=== PATIENT | female | born 2000 | race Caucasian/White ===

== ENCOUNTER → 2022-11-26 | Outpatient (CLI) | payer OTHER, SELFPAY ==
[2022-11-26 16:37] LABS: NATERA MAILED SPECIMEN
== END | disposition home or self-care (01) ==
LOC: PAVLAB 15:32
PROVIDERS: PCP Nurse Practitioner Family; Referring Provider Obstetrics & Gynecology; Visit Provider Obstetrics & Gynecology
DX: Z34.81 Encounter for supervision of other normal pregnancy, first trimester (principal)
CPT/HCPCS: 36415

== ENCOUNTER → 2022-12-25 | Outpatient (CLI) | payer OTHER, SELFPAY | END | disposition home or self-care (01) | PROVIDERS: PCP Nurse Practitioner Family; Visit Provider Nurse Practitioner Women's Health | DX: Z34.90 Encounter for supervision of normal pregnancy, unspecified, unspecified trimester (principal) | CPT/HCPCS: 87086; 87088 ==

== ENCOUNTER → 2023-03-05 | Outpatient (CLI) | payer OTHER, SELFPAY ==
[2023-03-05 15:05] LABS: Absolute Neutrophil Count 10.2 X10^3/uL (2.0-7.7); Basophil# 0.04 X10^3/uL; Basophil% 0.3 % (0-1); Eosinophil# 0.03 X10^3/uL; Eosinophils% 0.2 % (0-5); Hematocrit 36.3 % (37-47); Lymphocyte % 12.7 % (19-41); Mean Corp Hgb Conc 33.1 g/dL (32-36); Mean Corpuscular Hgb 30.8 pg (27.0-32.0); Mean Corpuscular Volume 93.1 fL (81-99); Monocyte# 0.73 X10^3/uL; Monocyte% 5.8 % (0-10); NRBC Flagged by Analyzer 0 % (0-5); Neutrophil # 10.15 X10^3/uL (2.7-7.7); Neutrophil % 80.7 % (47-70); Platelet Count 365 K/mm3 (150-450); RBC Distribution Width CV 11.9 % (11.6-14.6); RBC Distribution Width SD 40.6 fl (35.1-43.9); White Blood Count 12.6 K/mm3 (4.4-11.0)
[2023-03-05 16:50] LABS: HIV - WCH Non-Reactive (Nonreactive); Syphilis Antibodies Non-reactive
[2023-03-05 16:56] LABS: Glucose Challenge Gest 1H 50g 94 mg/dL (70-140)
== END | disposition home or self-care (01) ==
LOC: PAVLAB 14:37
PROVIDERS: PCP Nurse Practitioner Family; Referring Provider Obstetrics & Gynecology; Visit Provider Obstetrics & Gynecology
DX: O09.90 Supervision of high risk pregnancy, unspecified, unspecified trimester (principal)
CPT/HCPCS: 36415; 82950; 85025; 86703; 86780

== ENCOUNTER → 2023-05-07 | Outpatient (CLI) | payer OTHER, SELFPAY ==
--- NOTE | 2023-05-07 13:27 | US_ITS ---
EXAM: US , LIMITED CLINICAL INDICATION: Small gestational age TECHNIQUE: Real-time limited ultrasound of the maternal uterus with image documentation. COMPARISON: No relevant prior studies available. FINDINGS: FETUS: There is an intrauterine gestation. GESTATIONAL AGE: Gestational age 35 weeks 0 days. CHAD: CHAD 06/11/2023. EFW: Estimated weight 2265 g, 17th percentile. BPD: Biparietal diameter 8.3 cm age 33 weeks 4 days, 15th percentile. HC: Head circumference 30.4 cm age 33 weeks days, 4th percentile. AC: Abdominal circumference 30.0 cm age 34 0 days, 28 percentile. FL: Femur length 6.4 cm age 33 days, 15th percentile. POSITION: Fetus is in position. HEART RATE: heart rate is 141. PLACENTA: The placenta is anterior. AMNIOTIC FLUID: KASSANDRA is 8.1 cm. US/OB Limited With Biometrics IMPRESSION: Intrauterine gestation with an average ultrasound age of 33 weeks 3 days and an estimated due date of 06/22/2023. heart rate is 141 beats per. Electronically Signed: Jimenez Strong MD at 18:19 EDT ,
== END | disposition home or self-care (01) ==
LOC: US 13:27
PROVIDERS: PCP Nurse Practitioner Family; Referring Provider Nurse Practitioner Women's Health; Visit Provider Nurse Practitioner Women's Health
DX: O26.843 Uterine size-date discrepancy, third trimester (principal); Z3A.35 35 weeks gestation of pregnancy
CPT/HCPCS: 76816

== ENCOUNTER → 2023-05-12 | Outpatient (CLI) | payer OTHER, SELFPAY ==
--- NOTE | 2023-05-12 08:01 | US_ITS ---
STUDY: SECOND AND THIRD TRIMESTER OBSTETRICAL ULTRASOUND - LIMITED REASON FOR EXAM: Female, 22 years old KASSANDRA -- PREVIOUS US 05/07/23 LMP: September 04, 2022. PRIOR ULTRASOUND: Comparison is made with prior study dated May 07, 2023. TECHNIQUE: Transabdominal TECHNICAL QUALITY: Adequate. FINDINGS: There is a single intrauterine fetus. The fetus is in a cephalic presentation. There is demonstrated cardiac activity with a heart rate of 140 bpm. There is a normal amniotic fluid volume. The largest amniotic fluid pocket measures 5.3 cm x 2.6 cm. The amniotic fluid index (KASSANDRA) is 13.5 cm. The placenta is anterior in location and is not low lying. There are Grade 2 placental changes. Limited visualization due to the head positioning. BIOMETRY: Age by LMP: 35 weeks, 5 days. CHAD by LMP: June 11, 2023. age by prior US: 34 weeks, 1 days. CHAD by prior US: June 22, 2023. US/OB Limited (No Biometrics) IMPRESSION: Normal amniotic fluid index. Electronically Signed: Enoc Sanchez MD at 9:23 EDT ,
== END | disposition home or self-care (01) ==
LOC: OPUS 08:00
PROVIDERS: PCP Nurse Practitioner Family; Referring Provider Obstetrics & Gynecology; Visit Provider Obstetrics & Gynecology
DX: O36.5930 Maternal care for other known or suspected poor fetal growth, third trimester, not applicable or unspecified (principal); Z3A.35 35 weeks gestation of pregnancy
CPT/HCPCS: 76815

== ENCOUNTER 2023-05-14 12:35 | Outpatient (CLI) | payer OTHER, SELFPAY ==
--- NOTE | 2023-05-14 12:36 | US_ITS ---
We are attempting to reach an attending provider to discuss findings. An addendum with communication details will be sent when the communication is complete. STUDY: OBSTETRICAL ULTRASOUND - BIOPHYSICAL PROFILE REASON FOR EXAM: Female, 22 years old STAT possible IUGR LMP: 09/04/2022. PRIOR ULTRASOUND: 05/12/2023. TECHNIQUE: Transabdominal. TECHNICAL QUALITY: Adequate. FINDINGS: There is a single intrauterine fetus. The fetus is in a cephalic presentation. There is demonstrated cardiac activity with a heart rate of 138 bpm. There is a normal amniotic fluid volume. The largest amniotic fluid pocket measures 4.4 x 3.3 cm. The amniotic fluid index (KASSANDRA) is 9.57 cm. The placenta is anterior but not low-lying. There are Grade 2 placental changes. Age by LMP: 36 weeks, 0 days. CHAD by LMP: 06/06/2023.. age by prior US: 34 weeks, 3 days. CHAD by prior US: 06/22/2023.. . Gender: BIOPHYSICAL PROFILE: Breathing Movements (FBM): 0 Gross Body Movements (GBM): 2 Tone (FT): 2 Amniotic Fluid Volume (AFV): 2 TOTAL SCORE: / 8 US/Biophysical Prof W/O Non Stres IMPRESSION: Abnormal biophysical profile of 04/24. Electronically Signed: Justin Bryant MD at 13:59 EDT ,
[2023-05-14 13:55] VITALS: BP 123/73; PULSE 71; TEMP 36.4
[2023-05-14 14:05] VITALS: BMI 25.0
== END 2023-05-14 15:05 | disposition home or self-care (01) ==
LOC: US 12:35 → WPOUT 13:47 → WP 13:49
PROVIDERS: PCP Nurse Practitioner Family; Referring Provider Obstetrics & Gynecology; Visit Provider Obstetrics & Gynecology
DX: O09.90 Supervision of high risk pregnancy, unspecified, unspecified trimester (principal); Z3A.00 Weeks of gestation of pregnancy not specified
CPT/HCPCS: 59025; 59050; 76819; 87081; 99221; G0378

== ENCOUNTER 2023-05-20 14:00 | Outpatient (CLI) | payer OTHER, SELFPAY ==
[2023-05-20 14:16] VITALS: PULSE 79; PULSE 84; O2SAT 79; O2SAT 98
[2023-05-20 14:19] VITALS: BP 121/76; PULSE 74; TEMP 36.7; O2SAT 97
[2023-05-20 14:27] VITALS: BMI 24.7
--- NOTE | 2023-05-20 23:14 | OB.TRI.NOTE ---
HPI - General General Date of Admission: 05/20/23 Date of Service: 05/20/23 HPI Narrative KRISTEN BAUTISTA, is a 22 y/o @ 36 weeks, 6 days who presents to l&D with decreased movement on 05/20/23. [facility] Medical History (Updated 06/04/23 @ 08:[address] Estelle Nelson, DO) Anxiety delivery delivered Home Medications PNV 178-FA 180 mcg-om3 35 mg-dha 25 mg-epa 5 mg-fish oil chew tablet 1 tab PO DAILY preganancy 11/21/22 [History Last Taken 05/28/23 20:30] famotidine 20 mg tablet (Pepcid) 20 mg PO BID Heartburn #60 tabs 11/26/22 [Rx Last Taken 05/29/23 10:30] citalopram 20 mg tablet (Celexa) 20 mg PO DAILY Depression #90 tabs 02/17/23 [Rx Last Taken 05/29/23 10:30] naproxen 500 mg tablet 500 mg PO BID PRN PRN Pain #30 tabs 05/30/23 [Rx Last Taken Unknown] oxycodone-acetaminophen 5 mg-325 mg tablet (Percocet) 1 tab PO Q6H PRN pain 7 days #20 tabs 05/30/23 [Rx Last Taken Unknown] Allergy/AdvReac Type Severity Reaction Status Date / Time No Known Allergies Allergy Verified 05/29/23 19:11 Family History Father Skin cancer, Onset Age: 52 Brother Asperger syndrome Mother Cystic fibrosis carrier Social History adopted: No household members: spouse current occupational status: employed 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 occupational exposures/hazards: No pets and animals: Yes (Not managing litterbox while ) pets and animals: cat(s) and dog(s) history of recent travel: No sexually active: Yes Smoking Status: Never smoker alcohol intake: former details: not while substance use type: does not use well-balanced diet: daily or most days caffeine: No eating out: 1-3 times/week during the past year weight has: decreased > 10 lbs what type of physical activity do you participate in: none darrius/religious: Oriental Orthodox seatbelt use: always do you feel safe at home: Yes additional social history: - Will- Road Consultant History 2 Elective abortions Hx Para 0 Spontaneous abortions 1 Hx # Term Pregnancies Ectopic pregnancies Hx # Pregnancies Multiple births # of living children 1 Past Pregnancies Del. Date Name GA/Weeks Outcome Route Bth Weight Gen Labor Lgth Anesthesia Del Locatn Provider FOB 06/03/21 miscarriage 5 weeks gestation 05/30/23 Ellie 38 live - full term Female [facility] Rachel Delivery Date: 05/30/23 Last Updated by: Kendal Nascimento variable, Primary LTCS IOL IUGR ROS Constitutional Constitutional: Reports systems reviewed and no addt'l complaints, except as documented Gastrointestinal Gastrointestinal: Denies bloating, constipation, cramping, diarrhea, nausea or vomiting Genitourinary Genitourinary: Reports other Details: Denies vaginal odor, vaginal bleeding, or vaginal discharge ; Denies difficulty urinating or flank pain NST FHR Rate Baby A Baseline: 130-140 Variability:: Moderate Accelerations:: 15 x 15 Decelerations:: None NST Reactive:: Yes FHR Category:: Category I Assessment & Plan (1) Decreased movement: PLAN: Plan patient reassured of reactive NST. kick counts discussed dc pt to home keep next scheduled appt. Charges/Coding Multi Select Codes Urinary/Genital Urinary/Genital CPT Codes: 03104-45 non-stress test Interp
== END 2023-05-20 15:27 | disposition home or self-care (01) ==
LOC: WPOUT 14:05 → WP 14:05
PROVIDERS: PCP Nurse Practitioner Family; Referring Provider Obstetrics & Gynecology; Visit Provider Obstetrics & Gynecology
DX: O36.8130 Decreased fetal movements, third trimester, not applicable or unspecified (principal); Z3A.36 36 weeks gestation of pregnancy
CPT/HCPCS: 59025; 59050; 99221; G0378

== ENCOUNTER → 2023-05-21 | Outpatient (CLI) | payer OTHER, SELFPAY ==
[2023-05-21 11:29] LABS: Protein, Urine (Random) 61.5 mg/dL (<11.9); Protein:Creat Ratio 241 mg/g CRE (0-200)
== END | disposition home or self-care (01) ==
LOC: LABSPEC 11:12
PROVIDERS: PCP Nurse Practitioner Family; Visit Provider Obstetrics & Gynecology
DX: O12.10 Gestational proteinuria, unspecified trimester (principal); Z3A.00 Weeks of gestation of pregnancy not specified
CPT/HCPCS: 82570; 84156

== ENCOUNTER → 2023-05-21 | Outpatient (CLI) | payer OTHER, SELFPAY ==
[2023-05-21 11:36] LABS: Absolute Lymphocyte Count 1.87 X10^3/uL (0.83-4.51); Absolute Neutrophil Count 7.1 X10^3/uL (2.0-7.7); Basophil# 0.08 X10^3/uL; Basophil% 0.8 % (0-1); Eosinophil# 0.07 X10^3/uL; Eosinophils% 0.7 % (0-5); Hematocrit 38.1 % (37-47); Hemoglobin 12.3 g/dL (12.0-15.0); Lymphocyte # 1.87 X10^3/ul (0.83-4.51); Lymphocyte % 18.8 % (19-41); Mean Corp Hgb Conc 32.3 g/dL (32-36); Mean Corpuscular Hgb 29.5 pg (27.0-32.0); Mean Corpuscular Volume 91.4 fL (81-99); Monocyte# 0.81 X10^3/uL; Monocyte% 8.1 % (0-10); NRBC Flagged by Analyzer 0.2 % (0-5); Neutrophil # 7.05 X10^3/uL (2.7-7.7); Neutrophil % 70.9 % (47-70); Platelet Count 366 K/mm3 (150-450); RBC Distribution Width CV 12.5 % (11.6-14.6); RBC Distribution Width SD 40.8 fl (35.1-43.9); Red Blood Count 4.17 M/mm3 (4.2-5.4)
[2023-05-21 12:04] LABS: ALB/GLOB Ratio 0.7 RATIO (0.9-2.4); AST(SGOT) 22 U/L (15-37); Alanine Aminotransfer ALT/SGPT 16 U/L (13-56); Alkaline Phosphatase 195 U/L (45-117); Anion Gap 8 (5-15); BUN 10 mg/dL (7-18); BUN/Creat Ratio 11.1 RATIO (10-20); Calcium,Total 9.2 mg/dL (8.5-10.1); Chloride 106 mmol/L (98-107); EST Glomerular Filtration Rate 82 mL/min (>60); Est Glom Filt Rate - Afr Amer 99 mL/min (>60); Globulin 4.5 g/dL (2.2-4.2); Glucose 74 mg/dL (74-106); Protein, Total 7.5 g/dL (6.4-8.2); Sodium Level 135 mmol/L (136-145)
== END | disposition home or self-care (01) ==
PROVIDERS: PCP Nurse Practitioner Family; Referring Provider Obstetrics & Gynecology; Visit Provider Obstetrics & Gynecology
DX: O12.10 Gestational proteinuria, unspecified trimester (principal); Z3A.00 Weeks of gestation of pregnancy not specified
CPT/HCPCS: 36415; 80053; 85025

== ENCOUNTER → 2023-05-26 | Outpatient (CLI) | payer OTHER, SELFPAY ==
[2023-05-26 10:02] LABS: Absolute Lymphocyte Count 1.82 X10^3/uL (0.83-4.51); Basophil# 0.05 X10^3/uL; Basophil% 0.6 % (0-1); Eosinophil# 0.07 X10^3/uL; Eosinophils% 0.8 % (0-5); Hematocrit 34.7 % (37-47); Hemoglobin 11.2 g/dL (12.0-15.0); Lymphocyte # 1.82 X10^3/ul (0.83-4.51); Lymphocyte % 20.7 % (19-41); Mean Corp Hgb Conc 32.3 g/dL (32-36); Mean Corpuscular Hgb 29.2 pg (27.0-32.0); Mean Corpuscular Volume 90.4 fL (81-99); Monocyte% 9.1 % (0-10); NRBC Flagged by Analyzer 0 % (0-5); Neutrophil % 68.2 % (47-70); Platelet Count 330 K/mm3 (150-450); RBC Distribution Width CV 12.4 % (11.6-14.6); RBC Distribution Width SD 40.8 fl (35.1-43.9); Red Blood Count 3.84 M/mm3 (4.2-5.4); White Blood Count 8.8 K/mm3 (4.4-11.0)
[2023-05-26 10:24] LABS: ALB/GLOB Ratio 0.7 RATIO (0.9-2.4); AST(SGOT) 24 U/L (15-37); Alanine Aminotransfer ALT/SGPT 14 U/L (13-56); Albumin, Serum 2.9 g/dL (3.2-5.0); Alkaline Phosphatase 198 U/L (45-117); Anion Gap 6 (5-15); BUN 11 mg/dL (7-18); BUN/Creat Ratio 12.4 RATIO (10-20); Calcium,Total 9.2 mg/dL (8.5-10.1); Chloride 106 mmol/L (98-107); Creatinine, Serum 0.88 mg/dL (0.55-1.02); EST Glomerular Filtration Rate 83 mL/min (>60); Est Glom Filt Rate - Afr Amer 100 mL/min (>60); Globulin 4.4 g/dL (2.2-4.2); Glucose 78 mg/dL (74-106); Potassium 4.2 mmol/L (3.5-5.1); Protein, Total 7.3 g/dL (6.4-8.2); Sodium Level 134 mmol/L (136-145)
[2023-05-26 10:40] LABS: Protein, Urine (Random) 50.6 mg/dL (<11.9); Protein:Creat Ratio 356 mg/g CRE (0-200)
== END | disposition home or self-care (01) ==
PROVIDERS: PCP Nurse Practitioner Family; Referring Provider Registered Nurse; Visit Provider Registered Nurse
DX: O12.10 Gestational proteinuria, unspecified trimester (principal); Z3A.00 Weeks of gestation of pregnancy not specified
CPT/HCPCS: 36415; 80053; 82570; 84156; 85025

== ENCOUNTER 2023-05-29 18:50 | Inpatient (IN) | payer OTHER, SELFPAY ==
--- NOTE | 2023-05-14 19:22 | OB.TRI.HP_ITS ---
HPI - General HPI Narrative KRISTEN BAUTISTA, is a 22 y/o @ 36 weeks 0 days who presents for bpp 04/24. Bpp was ordered for ac of 4th%. She has an mfm appt coming up to discuss. Maternal Data Information CHAD Calculator Estimated Delivery Date Method Current WG Current Estimate 06/11/23 LMP (Certain) 36w 0d PFSH PFSH Home Medications PNV 178-FA 180 mcg-om3 35 mg-dha 25 mg-epa 5 mg-fish oil chew tablet 1 tab PO preganancy 11/21/22 [History Last Taken 05/13/23 21:00 1 TAB] famotidine 20 mg tablet (Pepcid) 20 mg PO BID #60 tabs 11/26/22 [Rx Last Taken 05/14/23 08:00 20 mg] citalopram 20 mg tablet (Celexa) 20 mg PO DAILY #90 tabs 02/17/23 [Rx Last Taken 05/14/23 08:00 20 mg] Allergy/AdvReac Type Severity Reaction Status Date / Time No Known Allergies Allergy Verified 05/14/23 14:08 Family History Father Skin cancer, Onset Age: 52 Brother Asperger syndrome Mother Cystic fibrosis carrier Social History adopted: No household members: spouse current occupational status: employed 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 occupational exposures/hazards: No pets and animals: Yes (Not managing litterbox while ) pets and animals: cat(s) and dog(s) history of recent travel: No sexually active: Yes Smoking Status: Never smoker alcohol intake: former details: not while substance use type: does not use well-balanced diet: daily or most days caffeine: No eating out: 1-3 times/week during the past year weight has: decreased > 10 lbs what type of physical activity do you participate in: none darrius/voodoo: Quaker seatbelt use: always do you feel safe at home: Yes additional social history: - Will- Registered Nurse Teacher History 2 Elective abortions Hx Para 0 Spontaneous abortions 1 Hx # Term Pregnancies Ectopic pregnancies Hx # Pregnancies Multiple births # of living children Past Pregnancies Del. Date Name GA/Weeks Outcome Route Bth Weight Gen Labor Lgth Anesthesia Del Locatn Provider FOB 06/03/21 miscarriage 5 weeks gestation Visit Details Expected Delivery Route/Plan Labor Preferences- CB/BF classes: Done labor support person: Will labor intervention preferences: [] pain management options preferred: epidural when she asks cut cord/dad catch: [] : yes PP control planned: [] discussed possible routes of delivery and associated risks: [] special requests: [] Plans Covid status: [] Flu vaccine: [] Tdap vaccine: done Rhogam: O+ LARC form signed: completed Problem list reviewed and updated with the most current plan of care details and appropriate orders placed. Relevant counseling for the gestational age provided. Continue routine care and follow up unless otherwise noted in visit notes/problem list details OB Flowsheet Initial Weight: Not Recorded Date -?-?-?-?-?-?-?-?-?-?-?-?- EGA Weight BP Urine Prot -?-?-?-?-?-?-?-?-?-?-?-?- Glucose FHR FuHt Pres Dilation -?-?-?-?-?-?-?-?-?-?-?-?- Effaced St Visit Note 11/26/22 -?-?-?-?-?-?-?-?-?-?-?-?- 11w 6d 126 lb 4 oz 116/66 -?-?-?-?-?-?-?-?-?-?-?-?- 185 -?-?-?-?-?-?-?-?-?-?-?-?- SM- CRL cons wit h Lmp 12/25/22 -?-?-?-?-?-?-?-?-?-?-?-?- 16w 0d 123 lb 4 oz 106/58 Nega tive -?-?-?-?-?-?-?-?-?-?-?-?- Negative 155 -?-?-?-?-?-?-?-?-?-?-?-?- MH-No bleeding o r cramping. Taking scheduled reglan and meclazine for nausea and improving. 3#weight loss I feel like I eat constently. Also worsening depression since change from prozac to zoloft per PCP. Wants to try something else and wants to start counseling. Rx zoloft. Reviewed diet, ensure drinks. Counseling handout given. Denies thoughts of self harm. RTO 2 weeks 01/08/23 -?-?-?-?-?-?-?-?-?-?-?-?- 18w 0d 128 lb 8 oz 94/58 Nega tive -?-?-?-?-?-?-?-?-?-?-?-?- Negative 154 -?-?-?-?-?-?-?-?-?-?-?-?- MH-No VB, crampi ng. Nausea improving. Still struggles with lack of energy/diet discussed. Enc chiropractor for back pain. 02/03/23 -?-?-?-?-?-?-?-?-?-?-?-?- 21w 5d 135 lb 8 oz 102/66 -?-?-?-?-?-?-?-?-?-?-?-?- 155 -?-?-?-?-?-?-?-?-?-?-?-?- MH-No VB, LOF. G ood FM. Nausea resolved. Some constipation. 03/05/23 -?-?-?-?-?-?-?-?-?-?-?-?- 26w 0d 137 lb 6 oz 110/73 Nega tive -?-?-?-?-?-?-?-?-?-?-?-?- Negative 151 25 -?-?-?-?-?-?-?-?-?-?-?-?- LC- no vb/ctx/lo f. good fm. larc completed. LC- no vb/ctx/lof. good fm. larc completed. glucose pending. 03/19/23 -?-?-?-?-?-?-?-?-?-?-?-?- 28w 0d 142 lb 8 oz 116/72 Nega tive -?-?-?-?-?-?-?-?-?-?-?-?- Negative 145 27 -?-?-?-?-?-?-?-?-?-?-?-?- JV- no lof, vagi nal bleeding, or dec fm. tdap today. 04/02/23 -?-?-?-?-?-?-?-?-?-?-?-?- 30w 0d 145 lb 2 oz 113/75 113/75 Negative -?-?-?-?-?-?-?-?-?-?-?-?- Negative 160 27 -?-?-?-?-?-?-?-?-?-?-?-?- KW- + FM, No lof /vb/ctx. NST for low fundal height. discussed with EMPERATRIZ, if FH low next visit plan growth US. 04/15/23 -?-?-?-?-?-?-?-?-?-?-?-?- 31w 6d 148 lb 2 oz 109/72 Trac e -?-?-?-?-?-?-?-?-?-?-?-?- Negative 145 30 -?-?-?-?-?-?-?-?-?-?-?-?- KW- +FM. no lof/ vb/ctx. FH NL today. No concerns. 04/30/23 -?-?-?-?-?-?-?-?-?-?-?-?- 34w 0d 148 lb 4 oz 110/72 Nega tive -?-?-?-?-?-?-?-?-?-?-?-?- Negative 149 31 -?-?-?-?-?-?-?-?-?-?-?-?- -No VB, LOF. G ood FM. No CTX. SGA and No wt gain for pt. Will get growth US 05/14/23 -?-?-?-?-?-?-?-?-?-?-?-?- 36w 0d 148 lb 8 oz 111/77 Trac e -?-?-?-?-?-?-?-?-?-?-?-?- Negative 135 31 -?-?-?-?-?-?-?-?-?-?-?-?- kw-+fm, no lof/v b/ctx. BPP scheduled and consult with mfm. reviewed with JV. BURR Constitutional Constitutional: Reports systems reviewed and no addt'l complaints, except as documented Gastrointestinal Gastrointestinal: Denies bloating, constipation, cramping, diarrhea, nausea or vomiting Genitourinary Genitourinary: Reports other Details: Denies vaginal odor, vaginal bleeding, or vaginal discharge ; Denies difficulty urinating or flank pain NST FHR Rate Baby A Baseline: 140 Variability:: Moderate Accelerations:: 15 x 15 Decelerations:: None NST Reactive:: Yes FHR Category:: Category I Assessment & Plan (1) SGA (small for gestational age), , affecting care of mother, antepartum: COMMENT: 05/08 EFW17%, KASSANDRA 8, RPT US in 1 week (2) Echogenic intracardiac focus of fetus on ultrasound: COMMENT: LR NIPT. (3) Depression: COMMENT: change prozac to zoloft and worse sx. New Rx citalopram-improved (4) Hyperemesis affecting , antepartum: COMMENT: meclizine, reglan/scheduled. pepcid. weight loss noted:ensure. (5) Family history of cystic fibrosis: COMMENT: Mother carrier, 2 cousins have CF (6) History of dilatation and curettage: COMMENT: May 2021 (7) History of miscarriage, currently : COMMENT: fetus stopped growing at 5 weeks(got with IUD, miscarried) (8) Supervision of high risk , antepartum: COMMENT: [id number], CHAD 06/11/23 , girl, Will (9) : QUALIFIERS: Weeks of gestation: 36 weeks Qualified Code(s): Z3A.36 - 36 weeks gestation of COMMENT: NIPT low risk, carrier testing neg. (10) Seasonal allergies: COMMENT: spring & fall PLAN: Plan nst reactive. bpp now 06/26 ok for dc to home and follow up with mfm in am. fluid normal on report. Charges/Coding Multi Select Codes Urinary/Genital Urinary/Genital CPT Codes: 15057-18 non-stress test Interp
[2023-05-29 19:37] VITALS: BMI 25.5
[2023-05-29 19:50] VITALS: TEMP 36.7
[2023-05-29 19:51] VITALS: BP 129/80; PULSE 66
[2023-05-29 19:57] LABS: Absolute Lymphocyte Count 1.49 X10^3/uL (0.83-4.51); Absolute Neutrophil Count 8.7 X10^3/uL (2.0-7.7); Basophil# 0.04 X10^3/uL; Basophil% 0.4 % (0-1); Eosinophil# 0.02 X10^3/uL; Eosinophils% 0.2 % (0-5); Hemoglobin 10.8 g/dL (12.0-15.0); Lymphocyte # 1.49 X10^3/ul (0.83-4.51); Lymphocyte % 13.6 % (19-41); Mean Corp Hgb Conc 32.7 g/dL (32-36); Mean Corpuscular Hgb 29.5 pg (27.0-32.0); Mean Corpuscular Volume 90.2 fL (81-99); Mean Platelet Vol. 10.7 fl (6.2-12.0); Monocyte# 0.69 X10^3/uL; Monocyte% 6.3 % (0-10); NRBC Flagged by Analyzer 0 % (0-5); Neutrophil # 8.68 X10^3/uL (2.7-7.7); Neutrophil % 78.9 % (47-70); Platelet Count 335 K/mm3 (150-450); RBC Distribution Width CV 12.6 % (11.6-14.6); RBC Distribution Width SD 40.7 fl (35.1-43.9); Red Blood Count 3.66 M/mm3 (4.2-5.4)
--- NOTE | 2023-05-29 20:19 | HP.PCM.OB_ITS ---
HPI - General General Date of Admission: 05/29/23 HPI Narrative KRISTEN BAUTISTA, is a 22 F who presents for induction secondary to IUGR no vb lof good fm n oregular ctx Maternal Data Information CHAD Calculator Estimated Delivery Date Method Current WG Current Estimate 06/11/23 LMP (Certain) 38w 1d PFSH PFS Medical History (Updated 05/29/23 @ 20:[address] Miguelina Ramos MD) Anxiety Home Medications PNV 178-FA 180 mcg-om3 35 mg-dha 25 mg-epa 5 mg-fish oil chew tablet 1 tab PO DAILY preganancy 11/21/22 [History Last Taken 05/28/23 20:30] famotidine 20 mg tablet (Pepcid) 20 mg PO BID Heartburn #60 tabs 11/26/22 [Rx Last Taken 05/29/23 10:30] citalopram 20 mg tablet (Celexa) 20 mg PO DAILY Depression #90 tabs 02/17/23 [Rx Last Taken 05/29/23 10:30] Allergy/AdvReac Type Severity Reaction Status Date / Time No Known Allergies Allergy Verified 05/29/23 19:11 Family History Father Skin cancer, Onset Age: 52 Brother Asperger syndrome Mother Cystic fibrosis carrier Social History adopted: No household members: spouse 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 occupational status: employed 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 occupational exposures/hazards: No pets and animals: Yes (Not managing litterbox while ) pets and animals: cat(s) and dog(s) history of recent travel: No sexually active: Yes Smoking Status: Never smoker alcohol intake: former details: not while substance use type: does not use well-balanced diet: daily or most days caffeine: No eating out: 1-3 times/week during the past year weight has: decreased > 10 lbs what type of physical activity do you participate in: none darrius/restorationism: Scientology seatbelt use: always do you feel safe at home: Yes 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 Date Name GA/Weeks Outcome Route Bth Weight Gen Labor Lgth Anesthesia Del [place] Provider FOB 06/03/21 miscarriage 5 weeks gestation Visit Details Expected Delivery Route/Plan Labor Preferences- CB/BF classes: Done labor support person: Will labor intervention preferences: [] pain management options preferred: epidural when she asks cut cord/dad catch: [] : yes PP control planned: [] discussed possible routes of delivery and associated risks: [] special requests: [] Plans Covid status: [] Flu vaccine: [] Tdap vaccine: done Rhogam: O+ LARC form signed: completed Problem list reviewed and updated with the most current plan of care details and appropriate orders placed. Relevant counseling for the gestational age provided. Continue routine care and follow up unless otherwise noted in visit notes/problem list details OB Flowsheet Initial Weight: Not Recorded Date -?-?-?-?-?-?-?-?-?-?-?-?- EGA Weight BP Urine Prot -?-?-?-?-?-?-?-?-?-?-?-?- Glucose FHR FuHt Pres Dilation -?-?-?-?-?-?-?-?-?-?-?-?- Effaced St Visit Note 11/26/22 -?-?-?-?-?-?-?-?-?-?-?-?- 11w 6d 126 lb 4 oz 116/66 -?-?-?-?-?-?-?-?-?-?-?-?- 185 -?-?-?-?-?-?-?-?-?-?-?-?- SM- CRL cons wit h Lmp 12/25/22 -?-?-?-?-?-?-?-?-?-?-?-?- 16w 0d 123 lb 4 oz 106/58 Nega tive -?-?-?-?-?-?-?-?-?-?-?-?- Negative 155 -?-?-?-?-?-?-?-?-?-?-?-?- MH-No bleeding o r cramping. Taking scheduled reglan and meclazine for nausea and improving. 3#weight loss I feel like I eat constently. Also worsening depression since change from prozac to zoloft per PCP. Wants to try something else and wants to start counseling. Rx zoloft. Reviewed diet, ensure drinks. Counseling handout given. Denies thoughts of self harm. RTO 2 weeks 01/08/23 -?-?-?-?-?-?-?-?-?-?-?-?- 18w 0d 128 lb 8 oz 94/58 Nega tive -?-?-?-?-?-?-?-?-?-?-?-?- Negative 154 -?-?-?-?-?-?-?-?-?-?-?-?- MH-No VBnayely. Nausea improving. Still struggles with lack of energy/d iet discussed. Enc chiropractor for back pain. 02/03/23 -?-?-?-?-?-?-?-?-?-?-?-?- 21w 5d 135 lb 8 oz 102/66 -?-?-?-?-?-?-?-?-?-?-?-?- 155 -?-?-?-?-?-?-?-?-?-?-?-?- MH-No VB, LOF. G chani FM. Nausea resolved. Some constipation. 03/05/23 -?-?-?-?-?-?-?-?-?-?-?-?- 26w 0d 137 lb 6 oz 110/73 Nega tive -?-?-?-?-?-?-?-?-?-?-?-?- Negative 151 25 -?-?-?-?-?-?-?-?-?-?-?-?- LC- no vb/ctx/lo f. good fm. larc completed. LC- no vb/ctx/lof. good fm. larc completed. glucose pending. 03/19/23 -?-?-?-?-?-?-?-?-?-?-?-?- 28w 0d 142 lb 8 oz 116/72 Nega tive -?-?-?-?-?-?-?-?-?-?-?-?- Negative 145 27 -?-?-?-?-?-?-?-?-?-?-?-?- JV- no lof, vagi nal bleeding, or dec fm. tdap today. 04/02/23 -?-?-?-?-?-?-?-?-?-?-?-?- 30w 0d 145 lb 2 oz 113/75 113/75 Negative -?-?-?-?-?-?-?-?-?-?-?-?- Negative 160 27 -?-?-?-?-?-?-?-?-?-?-?-?- KW- + FM, No lof /vb/ctx. NST for low fundal height. discussed with EMPERATRIZ, if FH low next visit plan growth US. 04/15/23 -?-?-?-?-?-?-?-?-?-?-?-?- 31w 6d 148 lb 2 oz 109/72 Trac e -?-?-?-?-?-?-?-?-?-?-?-?- Negative 145 30 -?-?-?-?-?--?-?-?-?-?-?-?- KW- +FM. no lof/ vb/ctx. FH NL today. No concerns. 04/30/23 -?-?-?-?-?-?-?-?-?-?-?-?- 34w 0d 148 lb 4 oz 110/72 Nega tive -?-?-?-?-?-?-?-?-?--?-?-?- Negative 149 31 -?-?-?-?-?-?-?-?-?-?-?-?- MH-No VB, LOF. G ood FM. No CTX. SGA and No wt gain for pt. Will get growth US 05/14/23 -?-?-?-?-?-?-?-?-?-?-?-?- 36w 0d 148 lb 8 oz 111/77 Trac e -?-?-?-?-?-?-?-?-?-?-?-?- Negative 135 31 -?-?-?-?-?-?-?-?-?-?-?-?- kw-+fm, no lof/v b/ctx. BPP scheduled and consult with michael. reviewed with EMPERATRIZ. 05/21/23 -?-?-?-?-?-?-?-?-?-?-?-?- 37w 0d 149 lb 4 oz 129/86 1+ -?-?-?-?-?-?-?-?-?-?-?-?- Negative 140 31 Cephalic 0 -?-?-?-?-?-?-?-?-?-?-?-?- JV- NST reactive today. has +1 protein and slightly higher than usual bp. will send for [facility] labs and prot:cr ratio. 05/26/23 -?-?-?-?-?-?-?-?-?-?-?-?- 37w 5d 149 lb 138/88 1+ -?-?-?-?-?-?-?-?-?-?-?-?- Negative 135 Cephalic -?-?-?-?-?-?-?-?-?-?-?-?- LC- NSt reactive , no ctx/lof/vb/ IOL set up for . [facility] labs redrawn today for elevated bp for her with 1+ protein. NST FHR Rate Baby A Baseline: 130 Variability:: Moderate Accelerations:: 15 x 15 Decelerations:: None NST Reactive:: Yes FHR Category:: Category I Uterine Activity:: irregular ROS Constitutional Constitutional: Reports systems reviewed and no addt'l complaints, except as documented Eyes Eyes: Denies change in vision ENT HEENT: Reports systems reviewed and no addt'l complaints, except as documented; Denies headache(s) Cardiovascular Cardiovascular: Reports systems reviewed and no addt'l complaints, except as documented; Denies chest pain or dyspnea Respiratory/Chest Respiratory/Chest: Reports systems reviewed and no addt'l complaints, except as documented Gastrointestinal Gastrointestinal: Reports systems reviewed and no addt'l complaints, except as documented; Denies abdominal pain Genitourinary Genitourinary: Reports systems reviewed and no addt'l complaints, except as documented, contractions Details: present (irregular) and movement Details: present; Denies dysuria or genital lesions Musculoskeletal Musculoskeletal: Reports systems reviewed and no addt'l complaints, except as documented Neurologic Neurologic: Reports systems reviewed and no addt'l complaints, except as documented Endocrine Endocrinology: Reports systems reviewed and no addt'l complaints, except as documented Vital Signs Vital Signs Vital Signs: 05/29/23 19:50 05/29/23 19:51 05/29/23 19:51 Temperature Temperature Source Temporal Pulse Rate 66 Blood Pressure 129/80 H BP Systolic 129 BP Diastolic 80 05/29/23 19:50 Temperature 98.1 F Temperature Source Pulse Rate Blood Pressure BP Systolic BP Diastolic Weight Weight: 149 lb Body Mass Index (BMI) 25.5 Physical Exam Const alert, oriented x3, no apparent distress and healthy appearing HEENT normocephalic and moist oral mucous membranes Head and Scalp: atraumatic Neck full ROM, no lymphadenopathy, supple and thyroid normal General: trachea midline Lymph Lymphatic: no lymphadenopathy noted Chest inspection of chest normal Resp normal respiratory effort Cardio regular rate GI normal to inspection, nondistended, normoactive bowel sounds, soft to palpation and non-tender Inspection: gravid external exam normal Manual OB Exam: estimated gestational size appropriate, presentation cephalic, dilated, effaced and station Extremity normal to inspection General Extremity: Negative for edema Skin no rashes or lesions noted Neuro no focal motor deficits and deep tendon reflexes 2+ bilaterally Motor Exam: strength 5/5 throughout and clonus absent Psych mental status grossly normal Labs Labs Labs: Blood Type Pending Antibody Screen Pending Hct 33.0 % (37-47) L Hgb 10.8 g/dL (12.0-15.0) L Pap Smear Negative Obstetrics US Syphilis Total Ab Non-reactive HIV 1&2 Antibody Non-Reactive (Nonreactive) Glucose 1 Hr 50 gm 94 mg/dL (70-140) Assessment & Plan (1) Proteinuria affecting : COMMENT: [facility] labs obtained. (2) IUGR (intrauterine growth restriction) affecting care of mother: COMMENT: 05/15- EFW 8% 2201g at 36 weeks, AC 2%, twice weekly bpp weekly dopplers deliver 38- 39 weeks. IOL on 06/02/23 at 7:00 PM (3) Echogenic intracardiac focus of fetus on ultrasound: COMMENT: LR NIPT. (4) Depression: COMMENT: change prozac to zoloft and worse sx. New Rx citalopram-improved (5) Hyperemesis affecting , antepartum: COMMENT: meclizine, reglan/scheduled. pepcid. weight loss noted:ensure. (6) Family history of cystic fibrosis: COMMENT: Mother carrier, 2 cousins have CF (7) History of dilatation and curettage: COMMENT: May 2021 (8) History of miscarriage, currently : COMMENT: fetus stopped growing at 5 weeks(got with IUD, miscarried) (9) Supervision of high risk , antepartum: COMMENT: [id number], CHAD 06/11/23 , girl, Will (10) Seasonal allergies: COMMENT: spring & fall (11) : QUALIFIERS: Weeks of gestation: 37 weeks Qualified Code(s): Z3A.37 - 37 weeks gestation of COMMENT: GBS neg, NIPT low risk, carrier testing neg. (12) Encounter for induction of labor: PLAN: Plan Patient presents IOL, plan management for with cytotec. Pain management: plans epidural. GBS negative. Management of any complications: IUGR I have reviewed the [facility] and made any clinically relevant updates.
[2023-05-29] MEDS: miSOPROStol 25 MCG TABLET VAGINAL (20:28)
[2023-05-29 20:43] LABS: Syphilis Antibodies Non-reactive
[2023-05-29 20:57] LABS: Hepatitis B Surface Antibody Non-Reactive
[2023-05-29] MEDS: Famotidine 20 MG Tablet PO (21:06)
[2023-05-29] MEDS: DiphenhydrAMINE 25 MG Capsule 50 MG PO (22:14)
[2023-05-30] VITALS (37 sets, daily range): BP systolic 104–154; BP diastolic 52–97; PULSE 56–100; RESP 14–16; TEMP 36–36.7; O2SAT 95–100
[2023-05-30] MEDS: miSOPROStol 25 MCG TABLET VAGINAL (00:44)
[2023-05-30] MEDS: fentaNYL 100 MCG/2 ML Ampul IV ×2 (02:38→05:04)
[2023-05-30] MEDS: 0.9% Saline Lock 10 ML Syringe IV (02:38)
[2023-05-30] MEDS: LACTATED RINGERS 500 ML 999 ML IV (04:45)
[2023-05-30] MEDS: Lactated Ringers 1,000 ML 200 ML IV (04:45)
[2023-05-30] MEDS: fentaNYL-bupivacaine (epidural) 100 ML BAG EPIDURAL (06:24)
[2023-05-30] MEDS: Cefazolin 2 GM in 0.9% Normal Saline 100 ML IV (08:34)
--- NOTE | 2023-05-30 09:22 | OP.PCM_ITS ---
Assessment & Plan (1) Variable heart rate decelerations, antepartum: (2) Encounter for induction of labor: (3) Proteinuria affecting : COMMENT: PIH labs obtained. (4) IUGR (intrauterine growth restriction) affecting care of mother: COMMENT: 05/15- EFW 8% 2201g at 36 weeks, AC 2%, twice weekly bpp weekly dopplers deliver 38- 39 weeks. IOL on 06/02/23 at 7:00 PM (5) Echogenic intracardiac focus of fetus on ultrasound: COMMENT: LR NIPT. (6) Depression: COMMENT: change prozac to zoloft and worse sx. New Rx citalopram-improved (7) Hyperemesis affecting , antepartum: COMMENT: meclizine, reglan/scheduled. pepcid. weight loss noted:ensure. (8) Family history of cystic fibrosis: COMMENT: Mother carrier, 2 cousins have CF (9) History of dilatation and curettage: COMMENT: May 2021 (10) Seasonal allergies: COMMENT: spring & fall (11) : QUALIFIERS: Weeks of gestation: 37 weeks Qualified Code(s): Z3A.37 - 37 weeks gestation of COMMENT: GBS neg, NIPT low risk, carrier testing neg. (12) Supervision of high risk , antepartum: COMMENT: [id number], CHAD 06/11/23 , girl, Will (13) History of miscarriage, currently : COMMENT: fetus stopped growing at 5 weeks(got with IUD, miscarried) Maternal Data Information CHAD Calculator Estimated Delivery Date Method Current WG Current Estimate 06/11/23 LMP (Certain) 38w 2d Final CHAD Source: LMP Gestational age: 39 Details Operative Information Date of Procedure: 05/30/23 Pre-Operative Diagnosis: see a/p diagnoses Post-Operative Diagnosis: same Indications Narrative: Patient was induced overnight with Cytotec for IUGR at 38 weeks as recommended per MFM. She underwent 2 doses of Cytotec and then experienced spontaneous rupture membranes and underwent epidural placement. At 615 patient developed minimal variability and recurrent variable decelerations. No significant hyperstimulation was present and with position changes and an IV fluid bolus the variables resolved and accelerations were present. However then the variables returned and the patient developed recurrent prolonged decelerations and had only made some cervical change to 4- 5 cm. An amnioinfusion was given, position changes utilized, and an IV fluid bolus given and the patient was still 4 to 5 cm dilated and felt to be remote from delivery with an IUGR fetus with concern for uteroplacental insufficiency. At 830 the decision was made to proceed with primary low-transverse due to recurrent variable decelerations. Patient was consented and she agreed to proceed. Procedure Type: low transverse Type of Anesthesia: Epidural Special Medications: none Drain: Parikh to straight drain Estimated Blood Loss: 500 Fluids Replaced: crystalloid Findings Description of Procedure: The patient was placed in the dorsal supine position with leftward tilt. Patient was prepped and draped in the normal sterile fashion. Pfannenstiel skin incision was made with the scalpel and carried through to the underlying layer of fascia with the scalpel. Fascia was nicked in the midline and the incision extended laterally. The rectus bellies were dissected off superiorly and inferiorly with out complication both sharply and bluntly. The peritoneum was entered digitally. The incision was stretched and a low transverse uterine incision was made with the scalpel. The 's head was delivered atraumatically followed by the anterior and posterior shoulders without complication the rest of the delivered. The cord was clamped and cut and the infant was handed off to awaiting nurse. The placenta was delivered spontaneously immediately following and was noted to be intact and have a three- vessel cord. The uterus was exteriorized cleared of all clots and debris, and the incision was closed in a double layer closure using #1 Monocryl. The ovaries and fallopian tubes were noted to be within normal limits. The uterus was returned to the maternal abdomen and gutters were cleared of all clots and debris. The peritoneum was closed with 3-0 Monocryl in a running fashion. Gloves were changed prior to fascial closure. Fascia was closed with 0 PDS in a running fashion. Subcutaneous tissue was copiously irrigated and the skin was closed with 3-0 Monocryl in a subcuticular fashion. Mepilex dressing was applied without complication. Patient was taken to recovery in stable condition. It was discussed with the patient that based on the clinical information obtained during this encounter, combined with her history, at this time I would recommend vaginal or for future deliveries if further pregnancies are desired. Placental Delivery Description: Spontaneous Placenta Disposition: [facility] Cord Vessel Description: 3 Vessels Cord Entanglement: Around neck x 1, loose Delayed Cord Clamping: Yes Complications Risks of Surgery Discussed w/Patient: Bleeding, Infection, Need for Future C- Sections and Injury to surrounding structure(s) including bowel and bladder Complications: none Admit VTE Documentation VTE Present on Admission: No VTE Mechan Device Prophylaxis: SCD's Procedures Urinary/Genital [id number]: [id number] Delivery [facility]
[2023-05-30] MEDS: Oxytocin 15 Units/NS 250ml 15 UNITS/250 ML IV.SOLN 83 UNITS IV (09:30)
[2023-05-30] MEDS: Ketorolac 30 MG/ML Syringe IV ×3 (10:04→22:05)
[2023-05-30] MEDS: Acetaminophen 500 MG Tablet 1000 MG PO ×3 (10:22→22:06)
[2023-05-30] MEDS: Citalopram 20 MG Tablet PO (10:22)
[2023-05-30] MEDS: Famotidine 20 MG Tablet PO ×2 (10:22→22:06)
[2023-05-30] MEDS: Lactated Ringers 1,000 ML 999 ML IV (12:35)
[2023-05-30] MEDS: Lactated Ringers 1,000 ML 100 ML IV (14:00)
[2023-05-30] MEDS: Senna/Docusate Sodium 1 Tablet PO (16:34)
--- NOTE | 2023-05-30 16:34 | CASEMGMT ---
Social Work Labor and Delivery Unit This social work coordinator was present and supportive to Father of baby (Peter) during HOWIE. Sw accompanied FOB to surgery and provided support and information up until the time when he was able to go into delivery room with mother of baby (MOB- Torrie). Sw received social work consult due to maternal mental health history positive for anxiety. - Sw completed chart review and met with parents and maternal grandma at bedside. - Sw provided support, education, literature and completed [place] Depression Screen with MOB. - Parents do not express any needs or concerns at this time. Parents have lots of supportive family and friends. - No social work concerns identified at this time, ok from sw perspective for MOB and baby to be discharged when medically ready. - Full psychosocial note to be entered at later date. Rodrigo Denise, FIREAR[employer] INSTRUCTOR, SCHOOL BUS DISPATCHER
--- NOTE | 2023-05-30 17:50 | DCINST_ITS ---
Discharge Instructions Diet Discharge Diet: No restrictions Activity Discharge Activity: May Not Drive (for 2 weeks or while taking narcotic pain medications.), May Shower and May Take a Tub Bath (in 7 days) May shower in (days): 0 May resume sexual activity in: 4-6 weeks Weight Bearing Status: Full weight bearing Lifting Restrictions: 20 pounds Dressing / Incision Call your doctor if your incision/area has: Continuous Slow Oozing, Sudden Increased Bleeding, Increased Pain/ Swelling, Increased Redness and Foul Smelling Discharge Call your doctor if you observe: Fever of 101 or Higher and Using more than 1 pad per hour (for 2 hours) Suture Line Care: Avoid Pulling/Pushing and Avoid Pinching/Bending Cleanse incision/area with: Soap & Water and Keep Dressing Clean & Dry Follow Up Care Please Follow Up With: Miguelina Ramos MD When: Call [phone] to make an appointment for an incision check in 1-2 weeks. Test Results: Test results from this visit will be discussed in further detail at your follow- up appointment, if applicable. Discharge Plan Admission Admit Date/Time: 05/29/23 18:50 Attending Provider: Miguelina Ramos Primary Care Provider: Elizabeth Bhandari NP Discharge Orders/Prescriptions Prescriptions: New oxycodone-acetaminophen [Percocet] 5-325 mg tablet 1 tab PO Q6H PRN (Reason: pain) 7 Days Qty: 20 0RF naproxen [naproxen] 500 mg tablet 500 mg PO BID PRN PRN (Reason: Pain) Qty: 30 1RF Continued famotidine [Pepcid] 20 mg tablet 20 mg PO BID Qty: 60 12RF citalopram [Celexa] 20 mg tablet 20 mg PO DAILY Qty: 90 2RF No Action PNV no.[id number] 180 mcg-35 mg- 25 mg-5 mg tablet,chewable 1 tab PO DAILY Referrals / Follow Up: Elizabeth Bhandari NP, [employer]OR-C [Primary Care Provider] - Disposition Disposition (needs filled in before D/C Order can be placed): Home, Self Care
--- NOTE | 2023-05-30 23:00 | NURSING ---
Urinary catheter present for the RN at the start of shift. This RN removed urinary catheter at 2245, it was patent and draining at this time, clear yellow urine. 10 ml removed from balloon.
[2023-05-31] MEDS: Ketorolac 30 MG/ML Syringe IV (04:33)
[2023-05-31] MEDS: Acetaminophen 500 MG Tablet 1000 MG PO ×4 (04:34→22:48)
[2023-05-31] MEDS: 0.9% Saline Lock 10 ML Syringe IV (04:34)
[2023-05-31 04:38] VITALS: BP 123/84; PULSE 71; RESP 14; TEMP 36.3; O2SAT 96
--- NOTE | 2023-05-31 06:23 | NURSING ---
Last two feeds for on shift commander MOB would breast feed and not call out when feed was done to request donor milk and Floor RN would go back in a little after the feeding and parents would be done with the breast feeding session and be sleeping. Parents educated on donor milk and benefits and how they are helping their sga and its important to try to stay on top of remembering once a feed is finished to get a hold of their nurse for donor milk that is ordered 5-10 cc after every feed.
[2023-05-31 06:37] LABS: Hematocrit 27.5 % (37-47); Hemoglobin 8.9 g/dL (12.0-15.0); Mean Corp Hgb Conc 32.4 g/dL (32-36); Mean Corpuscular Hgb 29.5 pg (27.0-32.0); Mean Corpuscular Volume 91.1 fL (81-99); Mean Platelet Vol. 10.5 fl (6.2-12.0); Platelet Count 248 K/mm3 (150-450); RBC Distribution Width CV 12.7 % (11.6-14.6); RBC Distribution Width SD 41.8 fl (35.1-43.9); Red Blood Count 3.02 M/mm3 (4.2-5.4); White Blood Count 9.6 K/mm3 (4.4-11.0)
--- NOTE | 2023-05-31 08:59 | PN.OBGYN_ITS ---
Subjective Subjective Patient doing well without complaints. Tolerating PO. Ambulating and voiding without difficulty. Feeding well. Denies chest pain, shortness of breath, calf pain/swelling, fevers, chills, lightheadedness. Objective Data Objective Data Vital Signs: Vital Signs Temp Pulse Resp BP Pulse Ox O2 Del Method 97.3 F L 71 14 123/84 H 96 Room Air 05/31/23 04:38 05/31/23 04:38 05/31/23 04:38 05/31/23 04:38 05/31/23 04:38 05/31/23 04:38 Oxygen Delivery Method Room Air Weight: 149 lb Body Mass Index (BMI) 25.5 Intake & Output: Intake and Output for Last 24 Hours 05/29/23 05/30/23 05/31/23 23:59 23:59 23:59 Intake Total 3535 / 3535 Output Total 2150 / 2150 900 / 900 Balance 1385 / 1385 -900 / -900 Lab / Micro Data Attestation: I reviewed the patient's lab results. 05/31/23 06:27 Labs: Laboratory Results - last 24 hr 05/31/23 06:27: WBC 9.6, RBC 3.02 L, Hgb 8.9 L, Hct 27.5 L, MCV 91.1, MCH 29.5, MCHC 32.4, RDW Std Deviation 41.8, RDW Coeff of Manoj 12.7, Plt Count 248, MPV 10.5 ROS Constitutional Constitutional: Reports systems reviewed and no addt'l complaints, except as doc umented; Denies anorexia or headache(s) Cardiovascular Cardiovascular: Reports systems reviewed and no addt'l complaints, except as documented; Denies dizziness, dyspnea, nausea or tachypnea Respiratory/Chest Respiratory/Chest: Reports systems reviewed and no addt'l complaints, except as documented; Denies cough, dyspnea, shortness of breath at rest or tachypnea Gastrointestinal Gastrointestinal: Reports systems reviewed and no addt'l complaints, except as documented; Denies abdominal pain, constipation or nausea Genitourinary Genitourinary: Reports systems reviewed and no addt'l complaints, except as documented; Denies burning urination, difficulty urinating, dysuria, urinary frequency or urinary incontinence Musculoskeletal Musculoskeletal: Reports systems reviewed and no addt'l complaints, except as documented Integumentary Integumentary: Reports systems reviewed and no addt'l complaints, except as documented Neurologic Neurologic: Reports systems reviewed and no addt'l complaints, except as documented; Denies abnormal speech, dizziness or headache(s) Psychiatric Psychiatric: Reports systems reviewed and no addt'l complaints, except as documented Endocrine Endocrinology: Reports systems reviewed and no addt'l complaints, except as documented Hematologic/Lymphatic Hematologic/Lymphatic: Reports systems reviewed and no addt'l complaints, except as documented Physical Exam Const alert, oriented x3 and no apparent distress Neck full ROM Chest Nipple/Areola: nipples/areola normal Resp normal respiratory effort, normal air movement and no retractions Effort and Inspection: able to speak in complete sentences and symmetric chest movement; Negative for tachypneic Cardio Rate: Negative for tachycardic GI soft to palpation Inspection: incision intact Bladder / Kidney Exam: bladder normal to palpation Uterus Palpation: uterus fundus firm Extremity normal to inspection and full ROM Psych mental status grossly normal, thought process normal and cooperative Assessment & Plan (1) delivery delivered: COMMENT: LTCS girl Ellie 38 IOL IUGR recurrent variables PLAN: s/p LTCS PPD # 1 1. routine post care 2. breast feeding- support given 3. rh positive 4. rubella immune 5. Start daily Iron PO for Hgb levels (2) Depression: COMMENT: change prozac to zoloft and worse sx. New Rx citalopram-improved Charges/Coding Multi Select Codes Urinary/Genital Urinary/Genital CPT Codes: No Charge
[2023-05-31 09:05] VITALS: BP 135/88; PULSE 77; RESP 16; TEMP 36.1; O2SAT 96
[2023-05-31] MEDS: Citalopram 20 MG Tablet PO (10:19)
[2023-05-31] MEDS: Senna/Docusate Sodium 1 Tablet PO (10:19)
[2023-05-31] MEDS: Naproxen 500 MG Tablet PO ×2 (10:19→19:32)
[2023-05-31] MEDS: Famotidine 20 MG Tablet PO ×2 (10:19→21:55)
[2023-05-31] MEDS: Ferrous Sulfate 325 MG Tablet PO (14:27)
[2023-05-31 14:30] VITALS: BP 105/68; PULSE 71; RESP 18; TEMP 36.2; O2SAT 98
[2023-05-31 19:32] VITALS: BP 129/76; PULSE 73; RESP 16; TEMP 36.4; O2SAT 97
[2023-05-31 23:45] VITALS: BP 135/83; O2SAT 97
--- NOTE | 2023-05-31 23:54 | NURSING ---
pt stated that she was having bilateral should pain she noticed an onset when she was up walking around. It originally was only in the right should but then was in both. This RN discussed about gas pain and ambulating and will follow up throughout the night. Pt also stated recently she began getting this heavy feeling on the right side of her head around her hindu area that felt like a shock feeling and it has come ands gone recently. She denied any dizziness, light headedness, visual changes, or that it feels like a headache. BP was 135/ 83 and pulse ox 97%. Other then those complaints, pt feels fine otherwise and pain is manageable. Will follow symptoms and reassess after pt gets some rest as she stated she is tired.
[2023-06-01 02:12] VITALS: BP 126/84; PULSE 66; RESP 18; O2SAT 97
[2023-06-01] MEDS: Naproxen 500 MG Tablet PO ×3 (03:14→20:45)
[2023-06-01] MEDS: Acetaminophen 500 MG Tablet 1000 MG PO ×4 (04:58→23:19)
--- NOTE | 2023-06-01 06:34 | NURSING ---
pt states her head has felt better and she hasn't had anymore episodes since last night and then she was moving her shoulders more and the pain was going away.
--- NOTE | 2023-06-01 07:49 | PCM.PN.OB ---
Subjective Subjective Patient doing well without complaints. Tolerating PO. Ambulating and voiding without difficulty. Feeding well. Denies chest pain, shortness of breath, calf pain/swelling, fevers, chills, lightheadedness. Objective Data Objective Data Vital Signs: Vital Signs Temp Pulse Resp BP Pulse Ox O2 Del Method 97.6 F L 66 18 126/84 H 97 Room Air 05/31/23 19:32 06/01/23 02:12 06/01/23 02:12 06/01/23 02:12 06/01/23 02:12 06/01/23 02:12 Oxygen Delivery Method Room Air Weight: 149 lb Body Mass Index (BMI) 25.5 Intake & Output: Intake and Output for Last 24 Hours 05/30/23 05/31/23 06/01/23 23:59 23:59 23:59 Intake Total 3535 / 3535 Output Total 2150 / 2150 900 / 900 Balance 1385 / 1385 -900 / -900 Lab / Micro Data Attestation: I reviewed the patient's lab results. 05/31/23 06:27 ROS Constitutional Constitutional: Reports systems reviewed and no addt'l complaints, except as documented; Denies anorexia or headache(s) Cardiovascular Cardiovascular: Reports systems reviewed and no addt'l complaints, except as documented; Denies dizziness, dyspnea, nausea or tachypnea Respiratory/Chest Respiratory/Chest: Reports systems reviewed and no addt'l complaints, except as documented; Denies cough, dyspnea, shortness of breath at rest or tachypnea Gastrointestinal Gastrointestinal: Reports systems reviewed and no addt'l complaints, except as documented; Denies abdominal pain, constipation or nausea Genitourinary Genitourinary: Reports systems reviewed and no addt'l complaints, except as documented; Denies burning urination, difficulty urinating, dysuria, urinary frequency or urinary incontinence Musculoskeletal Musculoskeletal: Reports systems reviewed and no addt'l complaints, except as documented Integumentary Integumentary: Reports systems reviewed and no addt'l complaints, except as documented Neurologic Neurologic: Reports systems reviewed and no addt'l complaints, except as documented; Denies abnormal speech, dizziness or headache(s) Psychiatric Psychiatric: Reports systems reviewed and no addt'l complaints, except as documented Endocrine Endocrinology: Reports systems reviewed and no addt'l complaints, except as documented Hematologic/Lymphatic Hematologic/Lymphatic: Reports systems reviewed and no addt'l complaints, except as documented Physical Exam Const alert, oriented x3 and no apparent distress Neck full ROM Resp normal respiratory effort, normal air movement and no retractions Effort and Inspection: able to speak in complete sentences and symmetric chest movement GI soft to palpation Bladder / Kidney Exam: bladder normal to palpation Uterus Palpation: uterus fundus Extremity normal to inspection and full ROM Psych mental status grossly normal, thought process normal and cooperative Assessment & Plan (1) delivery delivered: COMMENT: LTCS girl Ellie 38 IOL IUGR recurrent variables PLAN: . (2) Depression: COMMENT: change prozac to zoloft and worse sx. New Rx citalopram-improved PLAN: Plan s/p LTCS PPD # 2 1. routine post care 2. breast feeding- support given 3. rh positive 4. rubella immune Charges/Coding Multi Select Codes Urinary/Genital Urinary/Genital CPT Codes: No Charge
[2023-06-01 09:08] VITALS: BP 125/76; PULSE 79; RESP 16; TEMP 36.3
[2023-06-01] MEDS: Citalopram 20 MG Tablet PO (11:36)
[2023-06-01] MEDS: Senna/Docusate Sodium 1 Tablet PO (11:37)
[2023-06-01] MEDS: Famotidine 20 MG Tablet PO ×2 (11:38→21:52)
[2023-06-01] MEDS: Ferrous Sulfate 325 MG Tablet PO (12:46)
[2023-06-01 17:49] VITALS: BP 137/88; PULSE 68; RESP 16; TEMP 36.1
[2023-06-01 20:25] VITALS: BP 142/85; PULSE 60; RESP 16; TEMP 36.4; O2SAT 96
[2023-06-02 02:19] VITALS: BP 144/86; PULSE 70; RESP 16
[2023-06-02] MEDS: Naproxen 500 MG Tablet PO ×2 (04:50→11:27)
[2023-06-02] MEDS: Acetaminophen 500 MG Tablet 1000 MG PO ×2 (05:32→11:27)
--- NOTE | 2023-06-02 07:53 | PCM.PN.OB ---
Subjective Subjective Patient doing well without complaints. Tolerating PO. Ambulating and voiding without difficulty. Feeding well. Denies chest pain, shortness of breath, calf pain/swelling, fevers, chills, lightheadedness. Objective Data Objective Data Vital Signs: Vital Signs Temp Pulse Resp BP Pulse Ox O2 Del Method 97.6 F L 70 16 144/86 H 96 Room Air 06/01/23 20:25 06/02/23 02:19 06/02/23 02:19 06/02/23 02:19 06/01/23 20:25 06/01/23 20:25 Oxygen Delivery Method Room Air Weight: 149 lb Body Mass Index (BMI) 25.5 Intake & Output: Intake and Output for Last 24 Hours 05/31/23 06/01/23 06/02/23 23:59 23:59 23:59 Output Total 900 / 900 Balance -900 / -900 Lab / Micro Data 05/31/23 06:27 Physical Exam Const alert, oriented x3 and no apparent distress Neck full ROM Resp normal respiratory effort, normal air movement and no retractions Effort and Inspection: able to speak in complete sentences and symmetric chest movement GI soft to palpation GI Narrative: fundus firm 1 below u, scant lochia Bladder / Kidney Exam: bladder normal to palpation Uterus Palpation: uterus fundus Extremity normal to inspection, full ROM, no calf tenderness and no pedal edema Skin Skin Narrative: dressing unchanged with small pea size drainage. Psych mental status grossly normal, thought process normal and cooperative Assessment & Plan (1) delivery delivered: COMMENT: LTCS girl Ellie 38 IOL IUGR recurrent variables (2) Depression: COMMENT: change prozac to zoloft and worse sx. New Rx citalopram-improved PLAN: Plan s/p LTCS PPD # 3 1. routine post care 2. breast feeding- support given 3. rh positive 4. rubella immune 5. plan to d/c today
[2023-06-02 08:00] VITALS: BP 151/83; PULSE 58; RESP 16; TEMP 36.4; O2SAT 98
[2023-06-02 08:25] VITALS: BP 141/84
[2023-06-02] MEDS: Famotidine 20 MG Tablet PO (09:15)
[2023-06-02] MEDS: Senna/Docusate Sodium 1 Tablet PO (09:15)
[2023-06-02] MEDS: Citalopram 20 MG Tablet PO (09:15)
[2023-06-02] MEDS: Ferrous Sulfate 325 MG Tablet PO (11:27)
--- NOTE | 2023-06-02 11:49 | CASEMGMT ---
Social Work Assessment Labor and Delivery Unit Patient Address:[facility] [place] [address] Phone number: [phone] Date of Referral: 05/30/23 Time of Referral:?[id number] Referred By: Dr. Miguelina Ramos Date of Intervention: 05/30/23?? Time of Intervention:? 829, ongoing Reason for Referral:? Mental health Sw present for HOWIE with MOB and FOB earlier in morning. Sw provided support to FOB while MOB was prepared for . Sw received consult to meet with parents due to maternal mental health. Sw completed chart review and obtained additional information regarding maternal history. Sw presented to bedside and met with parents. Sw completed psychosocial assessment and provided support, empathy and education. History obtained from: medical records, MOB and FOB. Household composition: Residing at home are MOB, FOB and baby girlEllie Patient's parent/guardian status:?Parents report they met while they were going to school in [place]. They have been together for six years. While meeting with MOB privately she denies any domestic violence or intimate partner violence. Medical History: This is first and delivery for VIRY. VIRY presented to hospital in active labor, however baby's heart rate kept dipping so MOB was prepped for emergency . VIRY received routine care during with [facility] starting at 11 weeks gestation. MOB delivered baby girl, Ellie Patel, at 38 weeks gestation. Ellie has IUGR and weighed 5lb 4oz. Educational Status:?Both parents have graduate degrees. MOB has a degree in graphic design. FOB has a degree in engineering. Financial Status: Both parents are gainfully employed outside of the home. 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 MOB states that she really wants to do graphic design. FOB is an guidance and control system engineer for [employer]. FOB and MOB get adequate time off of work following delvier. Supplies:?? Parents state that have been able to obtain everything they need for baby including safe sleep space, car seat, clothes, diapers and wipes. VIRY also states that she has a breast pump to provide milk for baby. Childcare/Caregiver(s):?MOB states that when both parents are at work they have grandparents who are able to watch baby. Transportation:?? Both parents have reliable means of transportation, no transportation barriers at tis time. Programs/Agencies Involved: VIRY denies at this time. Sw provided information on [employer] and explained benefits of resource for moms and babies. ??? Children Services/Legal Issues:?No history of CSB involvement. NO issues or concerns that warrant referral to be made at this time. ?? Behavioral Health Issues: ??Mental Health History:?CARLIE denies mental health history. VIRY has been diagnosed with anxiety and depression. MOB states that she is prescribed citalopram by Dr. Ramos. ??MOB states that when CARLIE has to return to work, she has plans on staying with other family members or having maternal grandma come and stay with her to help her Substance Use History:?MOB and CARLIE deny substance use history. ? Family History:??MOB and CARLIE deny family mental health history and family substance use. ??? Drug Screens: No urine screens observed in chart review. - Sw did complete [place] Depression Screen, MOB score was a 10. Sw provided VIRY with list of mental health/counseling supporst that are close to where she lived. Due to MOB scoring a 10, sw explained the importance of getting connected to mental health supports. Family/Social Stressors:? Parents do not express any issues or concerns at this time. Support Systems: Parents have a lot of natural supports found in family members andfriends.d Depression/Shaken Baby/Safe Sleeping:? important topics so have this so we can indicate education? provided, responses as indicated, etc.?? ASSESSMENT:? Safe Plan of Care for related to substance use:? only need this if there is a concern about substance use and/or in utero exposure to substances.? PLAN:? ?No other services requested or indicated.
--- NOTE | 2023-06-02 12:14 | CASEMGMT ---
Social Work Assessment Labor and Delivery Unit Patient Address:[facility] [place] [address] Phone number: [phone] Date of Referral: 05/30/23 Time of Referral:?937 Referred By: Dr. Miguelina Ramos Date of Intervention: 05/30/23?? Time of Intervention:? 829, ongoing Reason for Referral:? Mental health Sw present for HOWIE with MOB and FOB earlier in morning. Sw provided support to FOB while MOB was prepared for . Sw received consult to meet with parents due to maternal mental health. Sw completed chart review and obtained additional information regarding maternal history. Sw presented to bedside and met with parents. Sw completed psychosocial assessment and provided support, empathy and education. History obtained from: medical records, MOB and FOB. Household composition: Residing at home are MOB, FOB and baby girlEllie Patient's parent/guardian status:?Parents report they met while they were going to school in [place]. They have been together for six years. While meeting with MOB privately she denies any domestic violence or intimate partner violence. Medical History: This is first and delivery for VIRY. VIRY presented to hospital in active labor, however baby's heart rate kept dipping so MOB was prepped for emergency . VIRY received routine care during with [place] starting at 11 weeks gestation. MOB delivered baby girl, Ellie Patel, at 38 weeks gestation. Ellie has IUGR and weighed 5lb 4oz. Educational Status:?Both parents have graduate degrees. MOB has a degree in graphic design. FOB has a degree in engineering. Financial Status: Both parents are gainfully employed outside of the home. 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 MOB states that she really wants to do graphic design. FOB is an computer systems engineer for [employer]. FOB and MOB get adequate time off of work following delvier. Supplies:?? Parents state that have been able to obtain everything they need for baby including safe sleep space, car seat, clothes, diapers and wipes. VIRY also states that she has a breast pump to provide milk for baby. Childcare/Caregiver(s):?MOB states that when both parents are at work they have grandparents who are able to watch baby. Transportation:?? Both parents have reliable means of transportation, no transportation barriers at tis time. Programs/Agencies Involved: MOB denies at this time. Sw provided information on Help Me Grow and explained benefits of resource for moms and babies. ??? Children Services/Legal Issues:?No history of CSB involvement. NO issues or concerns that warrant referral to be made at this time. ?? Behavioral Health Issues: ??Mental Health History:?CARLIE denies mental health history. VIRY has been diagnosed with anxiety and depression. MOB states that she is prescribed citalopram by Dr. Ramos. ??MOB states that when CARLIE has to return to work, she has plans on staying with other family members or having maternal grandma come and stay with her to help her Substance Use History:?MOB and FOGerson deny substance use history. ? Family History:??MOB and FOGerson deny family mental health history and family substance use. ??? Drug Screens: No urine screens observed in chart review. - Sw did complete [place] Depression Screen, MOB score was a 10. Sw provided MOB with list of mental health/counseling supporst that are close to where she lived. Due to MOB scoring a 10, sw explained the importance of getting connected to mental health supports. Family/Social Stressors:? Parents do not express any issues or concerns at this time. Support Systems: Parents have a lot of natural supports found in family members and friends. Maternal grandma at bedside most of morning. Depression/Shaken Baby/Safe Sleeping: Sw provided education and literature on baby blues, depression and encouraged parents to talk about how to support one another during this time. Sw provided education on shaken baby prevention and ABCs of safe sleep. Parents expressed understanding. ASSESSMENT:? Parents started off day requiring an emergency . Parents had support present and this afternoon seem to be processing the arrival of their baby appropriately. Parents were engaged during psychosocial assessment. Parents were both observed providing hands on care and nurture to their baby. Parents were polite and receptive to sw involvement and support. PLAN:? MOB and baby were discharged when medically ready. No further sw needs or concerns identified at this time. ?No other services requested or indicated. Rodrigo Denise, PAINTER BOTTOM, FIRE EQUIPMENT OPERATOR
[2023-06-06 14:23] VITALS: BP 136/84; PULSE 84
[2023-06-06 14:37] VITALS: BP 135/81; PULSE 82
[2023-06-06 14:52] VITALS: BP 144/86; PULSE 76
[2023-06-06 15:07] VITALS: BP 141/89; PULSE 77
--- NOTE | 2023-06-06 15:56 | DS.PCM_ITS ---
Providers Date of Admission: 05/29/23 Primary Care Physician: GEN Frost Reason For Visit: PRIMARY C SECTION Diagnosis Discharge Diagnosis (1) delivery delivered: Status: Acute Code(s): O82 - Encounter for delivery without indication (2) Depression: Status: Acute Code(s): F32.A - Depression, unspecified Plan Patient presents IOL, plan management for with cytotec. Pain management: plans epidural. GBS negative. Management of any complications: IUGR I have reviewed the [facility] and made any clinically relevant updates. Medications at Discharge Home Medications PNV 178-FA 180 mcg-om3 35 mg-dha 25 mg-epa 5 mg-fish oil chew tablet 1 tab PO DAILY preganancy 11/21/22 famotidine 20 mg tablet (Pepcid) 20 mg PO BID Heartburn #60 tabs 11/26/22 citalopram 20 mg tablet (Celexa) 20 mg PO DAILY Depression #90 tabs 02/17/23 naproxen 500 mg tablet 500 mg PO BID PRN PRN Pain #30 tabs 05/30/23 oxycodone-acetaminophen 5 mg-325 mg tablet (Percocet) 1 tab PO Q6H PRN pain 7 days #20 tabs 05/30/23 Hospital Course Summary of Care Provided Hospital Course: patient presented for IOL secondary to IUGR and during induction developed recurrent decelerations, underwent primary LTCS. Postoperatively patient had return of bowel and bladder function and was ambulating well, tolerating adequate p.o., and was stable for discharge to home on postop day #3. Discharge medications naproxen and Percocet. Follow-up in office in 2 weeks for incision check in 6 weeks for visit. Routine post section diet and activity instructions. Weight / BMI Weight Weight: 149 lb Body Mass Index (BMI) 25.5 ABG / Lab / Microbiology Data 05/31/23 06:27 D/C Instructions Discharge Diet: No restrictions Discharge Activity: May Not Drive (for 2 weeks or while taking narcotic pain medications.), May Shower and May Take a Tub Bath (in 7 days) May shower in (days): 0 May resume sexual activity in: 4-6 weeks Weight Bearing Status: Full weight bearing Call your doctor if your incision/area has: Continuous Slow Oozing, Sudden Increased Bleeding, Increased Pain/ Swelling, Increased Redness and Foul Smelling Discharge Call your doctor if you observe: Fever of 101 or Higher and Using more than 1 pad per hour (for 2 hours) Suture Line Care: Avoid Pulling/Pushing and Avoid Pinching/Bending Cleanse incision/area with: Soap & Water and Keep Dressing Clean & Dry Please Follow Up With: Miguelina Ramos MD When: Call [phone] to make an appointment for an incision check in 1-2 weeks. Meaningful Use Info Meaningful Use Diagnoses (Choose all that apply): None applicable Discharge Plan Admission Admit Date/Time: 05/29/23 18:50 Attending Provider: Miguelina Ramos Primary Care Provider: Elizabeth Bhandari NP Instructions Patient Instructions: After Delivery [place] Concerns, After a Discharge Orders/Prescriptions Prescriptions: New oxycodone-acetaminophen [Percocet] 5-325 mg tablet 1 tab PO Q6H PRN (Reason: pain) 7 Days Qty: 20 0RF naproxen [naproxen] 500 mg tablet 500 mg PO BID PRN PRN (Reason: Pain) Qty: 30 1RF Continued famotidine [Pepcid] 20 mg tablet 20 mg PO BID Qty: 60 12RF citalopram [Celexa] 20 mg tablet 20 mg PO DAILY Qty: 90 2RF No Action PNV no.[id number]-oaay 180 mcg-35 mg- 25 mg-5 mg tablet,chewable 1 tab PO DAILY Referrals / Follow Up: Elizabeth Bhandari NP, MANAGER LABOR DELIVERY-C [Primary Care Provider] - Disposition Disposition (needs filled in before D/C Order can be placed): Home, Self Care
== END 2023-06-02 12:50 | disposition home or self-care (01) | DRG 788 ==
PROVIDERS: Admitting Provider Obstetrics & Gynecology; PCP Nurse Practitioner Family; Visit Provider Obstetrics & Gynecology
DX: O36.5930 Maternal care for other known or suspected poor fetal growth, third trimester, not applicable or unspecified (principal); F32.A Depression, unspecified; O12.14 Gestational proteinuria, complicating childbirth; O21.0 Mild hyperemesis gravidarum; O76 Abnormality in fetal heart rate and rhythm complicating labor and delivery; O99.344 Other mental disorders complicating childbirth; Z3A.37 37 weeks gestation of pregnancy; Z37.0 Single live birth
CPT/HCPCS: 59025; 59050; 85025; 85027; 86706; 86780; 86850; 86900; 86901; 99221; J7120; A4216; G0378; J2405

== ENCOUNTER 2023-06-06 14:02 | Outpatient (CLI) | payer OTHER, SELFPAY ==
[2023-06-06] VITALS (12 sets, daily range): BP systolic 123–165; BP diastolic 65–105; PULSE 68–86; BMI 23.1
[2023-06-06 15:43] LABS: Absolute Lymphocyte Count 1.79 X10^3/uL (0.83-4.51); Basophil# 0.08 X10^3/uL; Basophil% 0.9 % (0-1); Eosinophil# 0.13 X10^3/uL; Eosinophils% 1.5 % (0-5); Hematocrit 37.6 % (37-47); Hemoglobin 11.6 g/dL (12.0-15.0); Lymphocyte # 1.79 X10^3/ul (0.83-4.51); Lymphocyte % 20.8 % (19-41); Mean Corp Hgb Conc 30.9 g/dL (32-36); Mean Corpuscular Hgb 28.9 pg (27.0-32.0); Mean Corpuscular Volume 93.5 fL (81-99); Mean Platelet Vol. 9.3 fl (6.2-12.0); Monocyte# 0.58 X10^3/uL; Monocyte% 6.7 % (0-10); NRBC Flagged by Analyzer 0 % (0-5); Neutrophil % 69.8 % (47-70); Platelet Count 556 K/mm3 (150-450); RBC Distribution Width CV 13.6 % (11.6-14.6); Red Blood Count 4.02 M/mm3 (4.2-5.4); White Blood Count 8.6 K/mm3 (4.4-11.0)
[2023-06-06 16:03] LABS: ALB/GLOB Ratio 0.9 RATIO (0.9-2.4); AST(SGOT) 24 U/L (15-37); Alanine Aminotransfer ALT/SGPT 27 U/L (13-56); Albumin, Serum 3.8 g/dL (3.2-5.0); Alkaline Phosphatase 156 U/L (45-117); Anion Gap 7 (5-15); BUN 20 mg/dL (7-18); BUN/Creat Ratio 23.6 RATIO (10-20); Calcium,Total 9.4 mg/dL (8.5-10.1); Chloride 108 mmol/L (98-107); Creatinine, Serum 0.85 mg/dL (0.55-1.02); EST Glomerular Filtration Rate 87 mL/min (>60); Est Glom Filt Rate - Afr Amer 105 mL/min (>60); Globulin 4.3 g/dL (2.2-4.2); Glucose 71 mg/dL (74-106); Potassium 4.2 mmol/L (3.5-5.1); Protein, Total 8.1 g/dL (6.4-8.2); Protein, Urine (Random) 74.6 mg/dL (<11.9); Protein:Creat Ratio 434 mg/g CRE (0-200); Sodium Level 139 mmol/L (136-145)
[2023-06-06] MEDS: Labetalol 200 MG Tablet PO (16:50)
--- NOTE | 2023-06-06 17:03 | OB.TRI.NOTE ---
HPI - General General Date of Admission: 06/06/23 HPI Narrative KRISTEN BAUTISTA, is a 22 y/o who presents to L&D after delivering 05/30 with dizziness and elevated blood pressures at home. While on the unit she had some blood pressures in the range of 10's/90's-100, however most were 130's/80's. She denies headache, abdominal pain, or visual changes. [facility] Medical History (Updated 06/06/23 @ 17:[address] Estelle Nelson, DO) Anxiety delivery delivered Home Medications PNV 178-FA 180 mcg-om3 35 mg-dha 25 mg-epa 5 mg-fish oil chew tablet 1 tab PO DAILY preganancy 11/21/22 [History Last Taken 05/28/23 20:30] famotidine 20 mg tablet (Pepcid) 20 mg PO BID Heartburn #60 tabs 11/26/22 [Rx Last Taken 05/29/23 10:30] citalopram 20 mg tablet (Celexa) 20 mg PO DAILY Depression #90 tabs 02/17/23 [Rx Last Taken 05/29/23 10:30] naproxen 500 mg tablet 500 mg PO BID PRN PRN Pain #30 tabs 05/30/23 [Rx Last Taken Unknown] oxycodone-acetaminophen 5 mg-325 mg tablet (Percocet) 1 tab PO Q6H PRN pain 7 days #20 tabs 05/30/23 [Rx Last Taken Unknown] labetalol 200 mg tablet 200 mg PO BID #60 tabs 06/06/23 [Rx Last Taken Unknown] Allergy/AdvReac Type Severity Reaction Status Date / Time No Known Allergies Allergy Verified 05/29/23 19:11 Family History Father Skin cancer, Onset Age: 52 Brother Asperger syndrome Mother Cystic fibrosis carrier Social History adopted: No household members: spouse current occupational status: employed 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 occupational exposures/hazards: No pets and animals: Yes (Not managing litterbox while ) pets and animals: cat(s) and dog(s) history of recent travel: No sexually active: Yes Smoking Status: Never smoker alcohol intake: former details: not while substance use type: does not use well-balanced diet: daily or most days caffeine: No eating out: 1-3 times/week during the past year weight has: decreased > 10 lbs what type of physical activity do you participate in: none darrius/shinto: Sabianism seatbelt use: always do you feel safe at home: Yes additional social history: - Will- Manager Servicing History 2 Elective abortions Hx Para 0 Spontaneous abortions 1 Hx # Term Pregnancies Ectopic pregnancies Hx # Pregnancies Multiple births # of living children 1 Past Pregnancies Del. Date Name GA/Weeks Outcome Route Bth Weight Gen Labor Lgth Anesthesia Del Locatn Provider FOB 06/03/21 miscarriage 5 weeks gestation 05/30/23 Ellie 38 live - full term [facility] Delivery Date: 05/30/23 Last Updated by: Kendal Nascimento variable, Primary LTCS IOL IUGR ROS Constitutional Constitutional: Reports systems reviewed and no addt'l complaints, except as documented Gastrointestinal Gastrointestinal: Denies bloating, constipation, cramping, diarrhea, nausea or vomiting Genitourinary Genitourinary: Reports other Details: Denies vaginal odor, vaginal bleeding, or vaginal discharge ; Denies difficulty urinating or flank pain Physical Exam HEENT normocephalic Resp normal respiratory effort and normal air movement no CVA tenderness Extremity normal to inspection General Extremity: edema bilateral (trace ) Assessment & Plan (1) Decreased movement: (2) delivery delivered: COMMENT: SM LTCS girl Ellie 38 IOL IUGR recurrent variables (3) Depression: COMMENT: change prozac to zoloft and worse sx. New Rx citalopram-improved (4) Mild pre-eclampsia, : PLAN: labs confirm mild pre-e 200 mg labetalol ordered. plan to watch patient for an hour and reassess bp. currently bp is 130/80 and she feels good will dc to home in1 hr and [facility] follow up in office in one week. Charges/Coding Multi Select Codes Visit Charges Office Visit/Consults: 48628 OV L3 Est
== END 2023-06-06 18:15 | disposition home or self-care (01) ==
LOC: WPOUT 15:16 → WP 15:17
PROVIDERS: PCP Nurse Practitioner Family; Referring Provider Obstetrics & Gynecology; Visit Provider Obstetrics & Gynecology
DX: O14.95 Unspecified pre-eclampsia, complicating the puerperium (principal); Z3A.00 Weeks of gestation of pregnancy not specified; O99.345 Other mental disorders complicating the puerperium; F32.A Depression, unspecified
CPT/HCPCS: 36415; 80053; 82570; 84156; 85025; 99221; G0378

== ENCOUNTER → 2024-08-16 | Outpatient (CLI) | payer OTHER, SELFPAY ==
[2024-08-16 14:44] LABS: Absolute Lymphocyte Count 1.96 X10^3/uL (0.83-4.51); Absolute Neutrophil Count 6.6 X10^3/uL (2.0-7.7); Basophil# 0.04 X10^3/uL; Basophil% 0.4 % (0-1); Eosinophil# 0.04 X10^3/uL; Eosinophils% 0.4 % (0-5); Hematocrit 39.3 % (37-47); Hemoglobin 13.2 g/dL (12.0-15.0); Lymphocyte # 1.96 X10^3/ul (0.83-4.51); Lymphocyte % 21.1 % (19-41); Mean Corp Hgb Conc 33.6 g/dL (32-36); Mean Corpuscular Hgb 29.9 pg (27.0-32.0); Mean Corpuscular Volume 89.1 fL (81-99); Mean Platelet Vol. 8.7 fl (6.2-12.0); Monocyte# 0.58 X10^3/uL; Monocyte% 6.2 % (0-10); NRBC Flagged by Analyzer 0 % (0-5); Neutrophil # 6.64 X10^3/uL (2.7-7.7); Neutrophil % 71.6 % (47-70); Platelet Count 325 K/mm3 (150-450); RBC Distribution Width CV 11.6 % (11.6-14.6); RBC Distribution Width SD 37.1 fl (35.1-43.9); Red Blood Count 4.41 M/mm3 (4.2-5.4); White Blood Count 9.3 K/mm3 (4.4-11.0)
[2024-08-16 14:56] LABS: AST(SGOT) 16 U/L (15-37); Alanine Aminotransfer ALT/SGPT 16 U/L (13-56); Albumin, Serum 3.8 g/dL (3.2-5.0); Alkaline Phosphatase 56 U/L (45-117); Anion Gap 7 (5-15); BUN 6 mg/dL (7-18); BUN/Creat Ratio 8.8 RATIO (10-20); Calcium,Total 9.3 mg/dL (8.5-10.1); Chloride 103 mmol/L (98-107); Creatinine, Serum 0.68 mg/dL (0.55-1.02); EST Glomerular Filtration Rate 111 mL/min (>60); Est Glom Filt Rate - Afr Amer 134 mL/min (>60); Globulin 3.8 g/dL (2.2-4.2); Glucose 89 mg/dL (74-106); Potassium 3.8 mmol/L (3.5-5.1); Protein, Total 7.6 g/dL (6.4-8.2); Sodium Level 136 mmol/L (136-145)
[2024-08-16 17:45] LABS: Protein, Urine (Random) 11.2 mg/dL (<11.9); Protein:Creat Ratio 84 mg/g CRE (0-200)
[2024-08-16 20:34] LABS: HIV - WCH Non-Reactive (Nonreactive); Hepatitis B Surface Antigen Non-Reactive (Nonreactive); Hepatitis C Antibody Non-Reactive (Nonreactive); Rubella IgG Reactive (Nonreactive); Syphilis Antibodies Non-reactive
[2024-08-19 06:10] LABS: Chlamydia By Nucleic Acid AMP Negative (Negative); Gonococcus By Nucleic Acid AMP Negative (Negative)
== END | disposition home or self-care (01) ==
PROVIDERS: PCP Nurse Practitioner Family; Referring Provider Advanced Practice Midwife; Visit Provider Advanced Practice Midwife
DX: Z34.01 Encounter for supervision of normal first pregnancy, first trimester (principal)
CPT/HCPCS: 36415; 80053; 82570; 84156; 85025; 86703; 86762; 86780; 86803; 86850; 86900; 86901; 87086; 87340; 87491; 87591

== ENCOUNTER → 2024-12-15 | Outpatient (CLI) | payer OTHER, SELFPAY ==
[2024-12-15 11:14] LABS: Absolute Lymphocyte Count 1.49 X10^3/uL (0.83-4.51); Absolute Neutrophil Count 6.3 X10^3/uL (2.0-7.7); Basophil# 0.03 X10^3/uL; Basophil% 0.4 % (0-1); Eosinophil# 0.03 X10^3/uL; Eosinophils% 0.4 % (0-5); Hematocrit 36.6 % (37-47); Hemoglobin 11.9 g/dL (12.0-15.0); Lymphocyte # 1.49 X10^3/ul (0.83-4.51); Lymphocyte % 17.8 % (19-41); Mean Corp Hgb Conc 32.5 g/dL (32-36); Mean Corpuscular Hgb 30.4 pg (27.0-32.0); Mean Corpuscular Volume 93.4 fL (81-99); Mean Platelet Vol. 9.4 fl (6.2-12.0); NRBC Flagged by Analyzer 0 % (0-5); Neutrophil # 6.31 X10^3/uL (2.7-7.7); Platelet Count 329 K/mm3 (150-450); RBC Distribution Width CV 12.5 % (11.6-14.6); RBC Distribution Width SD 42.9 fl (35.1-43.9); Red Blood Count 3.92 M/mm3 (4.2-5.4); White Blood Count 8.4 K/mm3 (4.4-11.0)
[2024-12-15 11:22] LABS: Glucose Challenge Gest 1H 50g 98 mg/dL (70-140)
[2024-12-15 11:50] LABS: HIV - WCH Non-Reactive (Nonreactive); Syphilis Antibodies Non-reactive
== END | disposition home or self-care (01) ==
LOC: BWCLAB 09:12
PROVIDERS: PCP Nurse Practitioner Family; Referring Provider Obstetrics & Gynecology; Visit Provider Obstetrics & Gynecology
DX: O09.90 Supervision of high risk pregnancy, unspecified, unspecified trimester (principal); Z13.1 Encounter for screening for diabetes mellitus; Z3A.00 Weeks of gestation of pregnancy not specified
CPT/HCPCS: 36415; 82950; 85025; 86703; 86780

== ENCOUNTER → 2025-02-14 | Outpatient (CLI) | payer OTHER, SELFPAY | END | disposition home or self-care (01) | LOC: LABSPEC 15:32 | PROVIDERS: PCP Nurse Practitioner Family; Referring Provider Advanced Practice Midwife; Visit Provider Advanced Practice Midwife | DX: O09.92 Supervision of high risk pregnancy, unspecified, second trimester (principal); Z3A.00 Weeks of gestation of pregnancy not specified | CPT/HCPCS: 87081 ==

== ENCOUNTER 2025-03-07 12:36 | Inpatient (IN) | payer OTHER, SELFPAY ==
[2025-03-07] VITALS (14 sets, daily range): BP systolic 91–116; BP diastolic 61–81; PULSE 69–84; RESP 12–18; TEMP 36.1–36.6; O2SAT 97–100; BMI 23.4
[2025-03-07] MEDS: Lactated Ringers 1,000 ML 999 ML IV (13:47)
[2025-03-07 14:08] LABS: Absolute Lymphocyte Count 1.77 X10^3/uL (0.83-4.51); Absolute Neutrophil Count 6.3 X10^3/uL (2.0-7.7); Basophil# 0.04 X10^3/uL; Basophil% 0.5 % (0-1); Eosinophil# 0.02 X10^3/uL; Eosinophils% 0.2 % (0-5); Hematocrit 36.5 % (37-47); Hemoglobin 12.4 g/dL (12.0-15.0); Lymphocyte # 1.77 X10^3/ul (0.83-4.51); Lymphocyte % 20.4 % (19-41); Mean Corpuscular Hgb 31.6 pg (27.0-32.0); Mean Corpuscular Volume 93.1 fL (81-99); Mean Platelet Vol. 10.5 fl (6.2-12.0); Monocyte# 0.59 X10^3/uL; Monocyte% 6.8 % (0-10); NRBC Flagged by Analyzer 0 % (0-5); Neutrophil # 6.25 X10^3/uL (2.7-7.7); Neutrophil % 71.9 % (47-70); Platelet Count 258 K/mm3 (150-450); RBC Distribution Width CV 12.3 % (11.6-14.6); RBC Distribution Width SD 41.8 fl (35.1-43.9); Red Blood Count 3.92 M/mm3 (4.2-5.4); White Blood Count 8.7 K/mm3 (4.4-11.0)
[2025-03-07] MEDS: Lactated Ringers 1,000 ML 150 ML IV (14:39)
[2025-03-07] MEDS: Acetaminophen 500 MG Tablet 1000 MG PO ×2 (14:40→20:16)
[2025-03-07 14:52] LABS: Syphilis Antibodies Nonreactive (Nonreactive)
--- NOTE | 2025-03-07 15:35 | HP.PCM.OB_ITS ---
HPI - General General Date of Admission: 03/07/25 HPI Narrative KRISTEN BAUTISTA, is a 24 y/o @ 39 weeks 4 days who presents for a repeat section. She was found to have low fluid today (kassandra 5) and an AC measuring 34 weeks. Maternal Data Information CHAD Calculator Estimated Delivery Date Method Current WG Current Estimate 03/10/25 LMP (Certain) 39w 4d Other Estimates 03/12/25 Ultrasound #1 39w 2d PFSH PFSH Medical History (Updated 03/07/25 @ 13:32 by Radha Ojeda) Oligohydramnios Depression Pre-eclampsia care and examination Decreased movement delivery delivered Anxiety Home Medications ?Medication ?Instructions ?Recorded ?Last Taken ?Type PNV 178-FA 180 mcg-om3 35 mg-dha 1 tab PO DAILY pregan erica 11/21/22 03/06/25 History 25 mg-epa 5 mg-fish oil chew tablet ferrous sulfate 325 mg (65 mg 325 mg PO QDAY anemia 03/06/25 History iron) tablet (Feosol) citalopram 20 mg tablet (Celexa) 30 mg (1.5 x 20 mg) P O QDAY 02/07/25 03/07/25 Rx anxiety 90 days #135 tabs famotidine 20 mg tablet 20 mg PO BID heartburn 90 da ys 02/07/25 03/07/25 Rx #180 TABLETS 81mg blood pressure 03/07/25 Unkn own History diphenhydramine HCl 25 mg tablet 25 mg PO QHS sleep 03/06/25 History (Allergy Relief (diphenhydramine)) Allergy/AdvReac Type Severity Reaction Status Date / Time No Known Allergies Allergy Verified 03/07/25 13:21 Family History Father Skin cancer, Onset Age: 52 Brother Asperger syndrome Mother Cystic fibrosis carrier Social History adopted: No household members: spouse and children current occupational status: employed 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 @ [employer] current occupational exposures/hazards: No pets and animals: Yes (Not managing litterbox while ) pets and animals: cat(s) and dog(s) history of recent travel: Yes details: - Jul 2024 out of state: Yes sexually active: Yes Smoking Status: Never smoker alcohol intake: current alcohol intake frequency: holidays/special occasions only details: not while substance use type: does not use well-balanced diet: daily or most days caffeine: Yes Type: coffee eating out: rarely or never during the past year weight has: remained stable what type of physical activity do you participate in: none darrius/mu-ism: Oriental Orthodox seatbelt use: always do you feel safe at home: Yes additional social history: : Will- Manager Documentation History 3 Elective abortions Hx Para 1 Spontaneous abortions 1 Hx # Term Pregnancies Ectopic pregnancies Hx # Pregnancies Multiple births # of living children 1 Past Pregnancies Del. Date Name GA/Weeks Outcome Route Bth Weight Gen Labor Lgth Anesthesia Del Locatn Provider FOB 06/03/21 miscarriage 5 weeks gestation 05/30/23 Ellie 38 live - full term 5lbs 7oz Female epidural [facility] Rachel Will Delivery Date: 05/30/23 Last Updated by: Kendal Nascimento variable, Primary LTCS IOL IUGR Visit Details Expected Delivery Route/Plan tolac patient counseled regarding risks/benefits of trial of labor versus repeat . ACOG/uptodate education given to patient. [] % likelihood of success per calculator TOLAC consent form signed: [] Plans Covid status: [] Flu vaccine: [] Tdap vaccine: [] Rhogam: na LARC form signed: yes Problem list reviewed and updated with the most current plan of care details and appropriate orders placed. Relevant counseling for the gestational age provided. Continue routine care and follow up unless otherwise noted in visit notes/problem list details OB Flowsheet Initial Weight: 133 lb Date -?-?-?-?-?-?-?-?-?-?-?-?- EGA Weight BP Urine Prot -?-?-?-?-?-?-?-?-?-?-?-?- Glucose FHR FuHt Pres Dilation -?-?-?-?-?-?-?-?-?-?-?-?- Effaced St Visit Note 08/16/24 -?-?-?-?-?-?-?-?-?-?-?-?- 10w 4d 133 lb (+0 oz) -?-?-?-?-?-?-?-?-?-?-?-?- 175 -?-?-?-?-?-?-?-?-?-?-?-?- KW- CRL cons wit h dates. undecided on NIPT. ASA at 12 weeks. 09/09/24 -?-?-?-?-?-?-?-?-?-?-?-?- 14w 0d 133 lb 4 oz (+4 oz) 120/78 Negative -?-?-?-?-?-?-?-?-?--?-?-?- Negative 155 -?-?-?-?-?-?-?-?-?-?-?-?- JV- normal NIPT. pt is tearful today and states that her friend 4 weeks after delivering her baby. She plans to name her baby after her by giving her the middle name Breonna. After long discussion we decided to increase her citalopram dose 10/08/24 -?-?-?-?-?-?-?-?-?-?-?-?- 18w 1d 134 lb 2 oz (+1 lb 2 oz) 100/68 Negative -?-?-?-?-?-?-?-?-?-?-?-?- Negative 135 -?-?-?-?-?-?-?-?-?-?-?-?- LC- no vb/crampi ng. cont mild nausea.has anatomy scheduled for next week. LC- no vb/cramping. cont mil d nausea.has anatomy scheduled for next week. flu vaccine today. 11/05/24 -?-?-?-?-?-?-?-?--?-?-?-?- 22w 1d 133 lb 6 oz (+6 oz) 92/45 Negative -?-?-?-?-?-?-?-?-?-?-?-?- Negative 140 -?-?-?-?-?-?-?-?-?-?-?-?- SM- no vb lof go od fm no regular ctx 11/29/24 -?-?-?-?-?-?-?-?-?-?-?-?- 25w 4d 136 lb (+3 lb) 97/67 Negative -?-?-?-?-?-?-?-?-?-?-?-?- Negative 145 23 -?-?-?-?-?-?-?-?-?-?-?-?- KW- no vb/lof/ct x. good fm. chiropractor for back pain. list of counselors given-Still feeling s/s depression after increase of medication. will try counseling and if not helpful may need to adjust medications. KW- no vb/lof/ctx. good fm. chiropractor for back pain. list of counselors given-Still feeling s/s depression after increase of medication. will try counseling and if not helpful may need to adjust medications. Discussed weight gain and ways to assist with increasing wt. 12/15/24 -?-?-?-?-?-?-?-?-?-?-?-?- 27w 6d 136 lb 6 oz (+3 lb 6 oz) 96/62 Negative -?-?-?-?-?-?-?-?-?-?-?-?- Negative 144 27 -?-?-?-?-?-?-?--?-?-?-?-?- -No VB, lof. G ood FM; 28 w labs pending, larc. nausea improving 12/27/24 -?-?-?-?-?-?-?-?-?-?-?-?- w 4d 136 lb (+3 lb) 116/79 Negative -?-?-?-?-?-?-?-?-?-?-?-?- Negative 135 -?-?-?-?-?-?-?-?-?-?-?-?- KW- nausea worse nathanael and unable to keep much food down. will try zofran prior to meals. Tday today. requesting to change SSRI. reports she has more bad days than good. will try prozac. KW- nausea worsening and raffi ble to keep much food down. will try zofran prior to meals. Tday today. requesting to change SSRI. reports she has more bad days than good. will try prozac. If IOL would rather have R/CS. request sent to schedule 01/03/25 -?-?-?-?-?-?-?-?-?-?-?-?- 30w 4d 135 lb 8 oz (+2 lb 8 oz) 104/62 -?-?-?-?-?-?-?-?-?-?-?-?- 140 -?-?-?-?-?-?-?-?-?-?-?-?- SM- weekly nsts 01/14/25 -?-?-?-?-?-?-?-?-?-?-?-?- 32w 1d 134 lb 4 oz (+1 lb 4 oz) 108/76 Negative -?-?-?-?-?-?-?-?-?-?-?-?- Negative 135 30 -?-?-?-?-?-?-?-?-?-?-?-?- KW- no vb/lof/ct x. good fm. Not doing well on Prozac. increased sx-will try celexa again. was on prior and did well with this. IUGR has resolved and no longer needs NST- would like now that IUGR has resolved. 01/24/25 -?-?-?-?-?-?-?-?-?-?-?-?- 33w 4d 137 lb 2 oz (+4 lb 2 oz) 105/72 Negative -?-?-?-?-?-?-?-?-?-?-?-?- Negative 130 31 -?-?-?-?-?-?-?-?-?-?-?-?- KW- no vb/lof/ct x. good fm. doing much better on the Celexa 30mg. has growth US in 2 weeks. 02/07/25 -?-?-?-?-?-?-?-?-?-?-?-?- 35w 4d 137 lb 4 oz (+4 lb 4 oz) 107/71 Negative -?-?-?-?-?-?-?-?-?-?-?-?- Negative 140 33 -?-?-?-?-?-?-?-?-?-?-?-?- JV- growth scan is this week. was normal last scan but measures small. 02/14/25 -?-?-?-?-?-?-?-?-?-?-?-?- 36w 4d 135 lb 4 oz (+2 lb 4 oz) 104/70 Negative -?-?-?-?-?-?-?-?-?-?-?-?- Negative 135 34 Cephalic 0 .5 -?-?-?-?-?-?-?-?-?-?-?-?- 60 -1 KW- no vb/ lof. contractions noted yesterday all day. n/v yesterday as well. growth scan normal EFW 41%. normal kassandra. GBS today 02/21/25 -?-?-?-?-?-?-?-?-?-?-?-?- 37w 4d 136 lb 8 oz (+3 lb 8 oz) 113/73 Negative -?-?-?-?-?-?-?-?-?-?-?-?- Negative 140 37 Cephalic 1 -?-?-?-?-?-?-?-?-?-?-?-?- 60 -1 JV- JV- no lof, vaginal bleeding , or dec fm. no complaints. has rpt cs scheduled for 41 weeks if no labor. May not want to wait until 41 however due to being borderline IUGR on and off this . 02/28/25 -?-?-?-?-?-?-?-?-?-?-?-?- 38w 4d 136 lb 6 oz (+3 lb 6 oz) 119/79 Negative -?-?-?-?-?-?-?-?-?-?-?-?- Negative 120 37 Cephalic 1 -?-?-?-?-?-?-?-?-?-?-?-?- 70 -1 KW- no vb/ lof/ctx. good fm. requesting sweep next week 03/07/25 -?-?-?-?-?-?-?-?-?-?-?-?- 39w 4d 137 lb (+4 lb) 119/78 Negative -?-?-?-?-?-?-?-?-?-?-?-?- Negative 135 33 Cephalic 1 -?-?-?-?-?-?-?-?-?-?-?-?- 60 -2 JV- KASSANDRA to day is 5, AC measuring 34 weeks. patient denies leaking fluid. recommend delivery today via repeat section for unfavorable cervix. ROS Constitutional Constitutional: Denies change in weight, fatigue, fever(s), headache(s), poor appetite or weakness Eyes Eyes: Denies blurry vision, change in vision, seeing flashes or spots in vision ENT HEENT: Denies dizziness, headache(s), loss taste/smell or sore throat Cardiovascular Cardiovascular: Denies chest pain, dizziness, dyspnea, irregular heart rhythm, leg edema, palpitations, rapid heart rate or vomiting Respiratory/Chest Respiratory/Chest: Denies chest tightness, cough, dyspnea or breast pain Gastrointestinal Gastrointestinal: Denies abdominal pain, anorexia, constipation, cramping, diarrhea, hemorrhoids, vomiting or weight changes Genitourinary Genitourinary: Denies dysuria, flank pain, genital lesions, genital pain, urinary frequency or urinary urgency Musculoskeletal Musculoskeletal: Denies back pain, difficulty walking, joint pain, limited range of motion, muscle cramps or numbness Integumentary Integumentary: Denies lesions or unusual bruising Neurologic Neurologic: Denies abnormal movements, abnormal speech, dizziness, numbness, seizure-like activity or syncope Psychiatric Psychiatric: Denies anxiety, behavioral changes, change in appetite, change in libido, cognitive impairment, confusion, depression, difficulty concentrating, hallucinations or suicidal thoughts Endocrine Endocrinology: Denies excessive sweating, polydipsia or polyuria Hematologic/Lymphatic Hematologic/Lymphatic: Denies easy bleeding, easy bruising or lymphadenopathy Allergic/Immunologic Allergic/Immunologic: Denies itchy eyes, lip swelling, seasonal rhinorrhea, rhinitis, throat swelling, tongue swelling, eczemia, wheezing or asthma Vital Signs Vital Signs Vital Signs: 03/07/25 13:41 Temperature 97.6 F L Temperature Source Temporal Pulse Rate 69 Respiratory Rate 12 Blood Pressure 104/69 Blood Pressure Mean 80 Blood Pressure Source Monitor Blood Pressure Position Semi-Fowlers Blood Pressure Location Left Arm Pulse Ox 99 Oxygen Delivery Method Room Air Weight Weight: 136 lb 9.6 oz Body Mass Index (BMI) 23.4 Physical Exam Const alert, oriented x3, no apparent distress and healthy appearing General Appearance: cooperative; Negative for anxious HEENT normocephalic Face and Sinus: normal facial exam Eyes EOMs intact bilaterally and no scleral icterus General Eye: normal appearance of both eyes Neck full ROM and supple Lymph Lymphatic: no lymphadenopathy noted Chest Chest: abnormal inspection of the chest Resp normal respiratory effort Effort and Inspection: able to speak in complete sentences Cardio regular rate GI soft to palpation and non-tender Inspection: gravid Palpation: soft; Negative for tender Back/Spine no CVA tenderness Extremity normal to inspection, full ROM and no clubbing, cyanosis or edema General Extremity: Negative for calf tenderness or edema Skin Lesions: no lesions Rashes: no rashes Psych mental status grossly normal Labs Labs Labs: Blood Type O POSITIVE Antibody Screen NEGATIVE Hct 36.5 % (37-47) L Hgb 12.4 g/dL (12.0-15.0) Pap Smear Negative Obstetrics Ultrasound Syphilis Total Ab Nonreactive (Nonreactive) Rubella IgG Antibody Reactive (Nonreactive) Hep Bs Antigen Non-Reactive (Nonreactive) Hepatitis C Antibody Non-Reactive (Nonreactive) Chlamydia DNA (NATASHA) Negative (Negative) N.gonorrhoeae DNA (NATASHA) Negative (Negative) HIV 1&2 Antibody Non-Reactive (Nonreactive) Glucose 1 Hr 50 gm 98 mg/dL (70-140) Assessment & Plan (1) Oligohydramnios: COMMENT: plan for delivery today- 39 weeks 4 days (2) IUGR (intrauterine growth restriction): COMMENT: resolved, but [facility] wants to continue monthly growth scans (3) History of prior with IUGR : COMMENT: plan 36 week growth US (4) Low lying placenta, antepartum: COMMENT: Next to os. Pelvic rest. Rpt US 28 wk-12/16: (5) Nausea and vomiting during : COMMENT: no meds, stable. (6) Supervision of high-risk : QUALIFIERS: Trimester: second trimester Qualified Code(s): O09.92 - Supervision of high risk , unspecified, second trimester COMMENT: PRR, , CHAD 03/10/25, girl, osmany PC: Ellie, : Will (7) : QUALIFIERS: Weeks of gestation: 39 weeks Qualified Code(s): Z3A.39 - 39 weeks gestation of COMMENT: GBS neg, nl anatomy with consitent CHAD, NIPT low risk, carrier testing done with prior preg, undecided with genetic (8) H/O section: COMMENT: plan TOLAC, RLTCS scheduled for 41 wk (9) Mild pre-eclampsia, : COMMENT: start asa 81mg between 12-16 weeks next (10) Depression: QUALIFIERS: Depression Type: unspecified Qualified Code(s): F32.A - Depression, unspecified COMMENT: change prozac to zoloft and worse sx. New Rx citalopram- improved. stable PLAN: Plan After discussing the patient's diagnosis and treatment plan options, patient wishes to proceed with surgical management. I have discussed with the patient the risks, benefits, and alternatives of the procedure which include but are not limited to risks of anesthesia, bleeding, infection, possible damage to bowel, bladder, or surrounding vasculature which could lead to additional surgery to evaluate any complications. Patient agrees to procedure and wishes to proceed. plan for repeat section today
[2025-03-07] MEDS: Sodium Citrate/Citric Acid 30 ML UDC PO (15:36)
[2025-03-07] MEDS: Cefazolin 2 GM in Syringe IV (15:45)
--- NOTE | 2025-03-07 16:32 | PCM.POST.ANE ---
Anesthesia: Postop Eval I Current Vital Signs Temperature: 97 F Pulse Rate: 75 Blood Pressure: 116/67 Respiratory Rate: 16 Pulse Ox: 100 Oxygen Delivery Method: Room Air Assessment Airway patent: Yes Spontaneous unlabored respirations: Yes Mental status: Awake and Calm nausea: No Vomiting: No Anesthesia Complication: No Fluid Hydration Crystalloid volume administer (ml): 1,200 Total IV fluid infused: 1,200 Progress Note Anesthesia document: Postop Eval 1 completed: Yes
--- NOTE | 2025-03-07 16:33 | EX.PCM.OBRPT ---
Assessment & Plan (1) Oligohydramnios: COMMENT: plan for delivery today- 39 weeks 4 days (2) IUGR (intrauterine growth restriction): COMMENT: resolved, but [facility] wants to continue monthly growth scans (3) History of prior with IUGR : COMMENT: plan 36 week growth US (4) Nausea and vomiting during : COMMENT: no meds, stable. (5) Low lying placenta, antepartum: COMMENT: Next to os. Pelvic rest. Rpt US 28 wk-12/16: (6) Supervision of high-risk : QUALIFIERS: Trimester: second trimester Qualified Code(s): O09.92 - Supervision of high risk , unspecified, second trimester COMMENT: PRR, , CHAD 03/10/25, girl, laureano PC: Ellie, : Will (7) : QUALIFIERS: Weeks of gestation: 39 weeks Qualified Code(s): Z3A.39 - 39 weeks gestation of COMMENT: GBS neg, nl anatomy with consitent CHAD, NIPT low risk, carrier testing done with prior preg, undecided with genetic (8) Mild pre-eclampsia, : COMMENT: start asa 81mg between 12-16 weeks next (9) H/O section: COMMENT: plan TOLAC, RLTCS scheduled for 41 wk (10) Depression: QUALIFIERS: Depression Type: unspecified Qualified Code(s): F32.A - Depression, unspecified COMMENT: change prozac to zoloft and worse sx. New Rx citalopram-improved. stable Maternal Data Information CHAD Calculator Estimated Delivery Date Method Current WG Current Estimate 03/10/25 LMP (Certain) 39w 4d Other Estimates 03/12/25 Ultrasound #1 39w 2d Operative Report (OB) Details Procedure Type: low transverse Date of Procedure: 03/07/25 Procedure Start Time: 15:55 Procedure Stop Time: 16:34 Time of Delivery: 16:00 Pre-Operative Diagnosis: Repeat Elective and Other (oligohydramnios ) Other Pre-Operative diagnosis: none Post-Operative Diagnosis: Same as Pre-operative diagnosis and Other Post-Operative Diag OTHER Post-Operative Diagnosis: none Classification: GEETA Type of Anesthesia: Spinal Antibiotic Given: Ancef 2 grams IV x1 Drain: Parikh to straight drain Estimated Blood Loss: 700cc Findings Description of surgery: The patient is a 24 y/o @ 39 weeks 4 days presented for repeat due to prior section and Oligohydramnios. Spinal anesthesia was placed without difficulty. Parikh catheter was placed. The patient was placed in the dorsal supine position with leftward tilt. Patient was prepped and draped in the normal sterile fashion. Pfannenstiel skin incision was made with the scalpel and carried through to the underlying layer of fascia with the scalpel. Fascia was nicked in the midline and the incision extended laterally. The rectus bellies were dissected off superiorly and inferiorly with out complication both sharply and bluntly. The peritoneum was entered digitally. The incision was stretched and a low transverse uterine incision was made with the scalpel. The 's head was delivered atraumatically followed by the anterior and posterior shoulders without complication the rest of the delivered. The cord was clamped and cut and the was handed off to awaiting nurse. The placenta was delivered spontaneously immediately following and was noted to be intact and have a three-vessel cord. The uterus was exteriorized cleared of all clots and debris, and the incision was closed in a double layer closure using #1vicryl and #1 Monocryl. Amrita powder was then applied for some slight oozing. The ovaries and fallopian tubes were noted to be within normal limits. The uterus was returned to the maternal abdomen and gutters were cleared of all clots and debris. The peritoneum was closed with 3-0 Monocryl in a running fashion. Fascia was closed with 0 PDS in a running fashion. Subcutaneous tissue was copiously irrigated and the skin was closed with 3-0 Monocryl in a subcuticular fashion. Mepilex dressing was applied without complication. Patient was taken to recovery in stable condition. It was discussed with the patient that based on the clinical information obtained during this encounter, combined with her history, at this time I would recommend repeat section for future deliveries if further pregnancies are desired. Surgical findings: Viable female scores 9/9 Laureano Presentation: Vertex Amniotic Membrane Rupture Type: Artificial Amniotic Fluid Description: Clear Placental Delivery Description: Manual Removal Placenta Disposition: [facility] Specimen collected: No Cord Vessel Description: 3 Vessels Cord Entanglement: Around neck x 1, loose Nuchal Cord Compression: Without compression Infant A gender: Female (1 minute): 9 (5 minute): 9 Delayed Cord Clamping: Yes Customs Appraiser quality assurance monitor body: Yes Health Information Technologist: Sowmya Chávez Tasks completed by machinist first class: Closing and Retracting Additional assistant child care teacher?: No Complications Complications: No Multi Select Codes Urinary/Genital Urinary/Genital CPT Codes: 01641 Delivery [facility]
--- NOTE | 2025-03-07 16:35 | POSTOPAN2_ITS ---
Anesthesia Postop Eval I Sum Postop Eval Completion status Anesthesia document: Postop Eval 1 completed: Yes Anesthesia Postop Eval I Summary Anesthesia Postop Eval I Summary: Anesthesia Postop Eval I: Assessment Summary Airway patent Yes 03/07/25 16:33 [facility] [employer]LE[facility]OT[employer]ISTS.MDOT Spontaneous unlabored Yes 03/07/25 16:33 [facility] [employer]IST[employer] PHLEBOTOMISTS.MDOT respirations Mental status Awake,Calm 03/07/25 16:33 [facility] [employer] [employer]IST[employer] [employer]LEBOTOMISTS.MDOT nausea No 03/07/25 16:33 [facility] [employer]IST[employer] PHLEBOTOMISTS.MDOT Vomiting No 03/07/25 16:33 [facility] [employer] ASSIST[employer] PHLEBOTOMISTS.MDOT Anesthesia Postop Eval I: Fluid Summary Crystalloid volume administer 1,200 03/07/25 16:33 [facility] [employer] ASSIST[employer] PHLEBOTOMISTS.MDOT (ml) Colloids volume administered ( ml) Blood Product volume administered (ml) Total IV fluid infused 1,200 03/07/25 16:33 N[facility]SES [facility] ASSIST[facility] PHLEBOTOMISTS.MDOT Anesthesia Postop Eval I: Summary Notes Anesthesia Complication No 03/07/25 16:33 [facility] ASSIST[employer] PHLEBOTOMISTS.MDOT Anesthesia Complication Comment: Post-operative progress note Anesthesia: Postop Eval II Evaluation Mental status: Awake and Calm Pain Level: 0 nausea: No Vomiting: No Complications Anesthesia Complication: No
--- NOTE | 2025-03-07 16:35 | PCM.POSTANE2 ---
Anesthesia Postop Eval I Sum Postop Eval Completion status Anesthesia document: Postop Eval 1 completed: Yes Anesthesia Postop Eval I Summary Anesthesia Postop Eval I Summary: Anesthesia Postop Eval I: Assessment Summary Airway patent Yes 03/07/25 16:33 NURSE TECH.MDOT Spontaneous unlabored Yes 03/07/25 16:33 NURSE TECH.MDOT respirations Mental status Awake,Calm 03/07/25 16:33 NURSE TECH.MDOT nausea No 03/07/25 16:33 NURSE TECH.MDOT Vomiting No 03/07/25 16:33 NURSE TECH.MDOT Anesthesia Postop Eval I: Fluid Summary Crystalloid volume administer 1,200 03/07/25 16:33 NURSE TECH.MDOT (ml) Colloids volume administered ( ml) Blood Product volume administered (ml) Total IV fluid infused 1,200 03/07/25 16:33 NURSE TECH.MDOT Anesthesia Postop Eval I: Summary Notes Anesthesia Complication No 03/07/25 16:33 NURSE TECH.MDOT Anesthesia Complication Comment: Post-operative progress note Anesthesia: Postop Eval II Evaluation Mental status: Awake and Calm Pain Level: 0 nausea: No Vomiting: No Complications Anesthesia Complication: No
--- NOTE | 2025-03-07 16:41 | DCINST_ITS ---
Discharge Instructions Diet Discharge Diet: No restrictions DC O2, CPAP, BIPAP needs Home O2 Discharge instructions: No Dressing / Incision Discharge Activity: May Not Drive (for 2 weeks or while taking narcotic pain medications.), May Shower and May Take a Tub Bath (in 7 days.) May resume sexual activity in: 4-6 weeks Weight Bearing Status: Full weight bearing Lifting Restrictions: 20 pounds Dressing / Incision Call your doctor if your incision/area has: Continuous Slow Oozing, Sudden Increased Bleeding, Increased Pain/ Swelling, Increased Redness and Foul Smelling Discharge Call your doctor if you observe: Fever of 101 or Higher and Using more than 1 pad per hour Suture Line Care: Avoid Pulling/Pushing and Avoid Pinching/Bending Cleanse incision/area with: Soap & Water and Keep Dressing Clean & Dry Follow Up Care Please Follow Up With: Estelle Nelson DO When: Call [phone] to make an appointment for an incision check in 1-2 weeks. Test Results: Test results from this visit will be discussed in further detail at your follow- up appointment, if applicable. Discharge Plan Admission Admit Date/Time: 03/07/25 12:36 Primary Reason for Your Visit: section Attending Provider: Estelle Nelson Primary Care Provider: Elizabeth Bhandari NP Discharge Orders/Prescriptions Prescriptions: New ibuprofen 800 mg tablet 800 mg PO Q8H PRN (Reason: pain) Qty: 30 0RF oxycodone-acetaminophen [Percocet] 5-325 mg tablet 1 tab PO Q4H PRN (Reason: pain) 7 Days Qty: 20 0RF Continued PNV no.[id number] 180 mcg-35 mg- 25 mg-5 mg tablet,chewable 1 tab PO DAILY ferrous sulfate [Feosol] 325 mg (65 mg iron) tablet 325 mg PO QDAY citalopram [Celexa] 20 mg tablet 30 mg PO QDAY 90 Days Qty: 135 3RF famotidine 20 mg tablet 20 mg PO BID 90 Days Qty: 180 4RF Discontinued 81mg diphenhydramine HCl [Allergy Relief(diphenhydramin)] 25 mg tablet 25 mg PO QHS Referrals / Follow Up: Elizabeth Bhandari NP, [employer] TEACHER-[employer] [Primary Care Provider] - Disposition Disposition (needs filled in before D/C Order can be placed): Home, Self Care
[2025-03-07] MEDS: Oxytocin 15 Units/NS 250ml 15 UNITS/250 ML IV.SOLN 83 UNITS IV (16:45)
[2025-03-07] MEDS: Ketorolac 30 MG/ML Syringe IV ×2 (17:32→22:09)
[2025-03-07] MEDS: 0.9% Saline Lock 10 ML Syringe IV ×2 (17:32→22:10)
[2025-03-07] MEDS: Lactated Ringers 1,000 ML 100 ML IV (20:17)
[2025-03-07] MEDS: Famotidine 20 MG Tablet PO (22:12)
[2025-03-08] VITALS (7 sets, daily range): BP systolic 94–101; BP diastolic 57–69; PULSE 61–83; RESP 16–17; TEMP 36.2–36.6; O2SAT 95–98
[2025-03-08] MEDS: Acetaminophen 500 MG Tablet 1000 MG PO ×4 (02:33→20:03)
[2025-03-08] MEDS: Ketorolac 30 MG/ML Syringe IV ×2 (05:19→11:05)
[2025-03-08] MEDS: 0.9% Saline Lock 10 ML Syringe IV (05:20)
[2025-03-08 05:33] LABS: Hematocrit 29.9 % (37-47); Hemoglobin 10.4 g/dL (12.0-15.0); Mean Corp Hgb Conc 34.8 g/dL (32-36); Mean Corpuscular Hgb 32.6 pg (27.0-32.0); Mean Corpuscular Volume 93.7 fL (81-99); Mean Platelet Vol. 9.5 fl (6.2-12.0); Platelet Count 214 K/mm3 (150-450); RBC Distribution Width CV 12.2 % (11.6-14.6); Red Blood Count 3.19 M/mm3 (4.2-5.4); White Blood Count 8.4 K/mm3 (4.4-11.0)
--- NOTE | 2025-03-08 07:06 | PN.OBGYN_ITS ---
Subjective Subjective Patient doing well without complaints. Tolerating PO. Ambulating and voiding without difficulty. Feeding well. Denies chest pain, shortness of breath, calf pain/swelling, fevers, chills, lightheadedness. Objective Data Objective Data Vital Signs: Vital Signs Temp Pulse Resp BP Pulse Ox O2 Del Method 97.1 F L 61 16 101/69 98 Room Air 03/08/25 05:16 03/08/25 05:16 03/08/25 05:16 03/08/25 05:16 03/08/25 05:16 03/08/25 05:16 Oxygen Delivery Method Room Air Weight: 136 lb 9.6 oz Body Mass Index (BMI) 23.4 Intake & Output: Intake and Output for Last 24 Hours 03/06/25 03/07/25 03/08/25 23:59 23:59 23:59 Intake Total 1377.5 / 1377.5 1000 / 1000 Output Total 1050 / 1050 1525 / 1525 Balance 327.5 / 327.5 -525 / -525 Lab / Micro Data 03/08/25 05:15 Labs: Laboratory Results - last 24 hr 03/07/25 13:00: WBC 8.7, RBC 3.92 L, Hgb 12.4, Hct 36.5 L, MCV 93.1, MCH 31.6, MCHC 34.0, RDW Std Deviation 41.8, RDW Coeff of Manoj 12.3, Plt Count 258, MPV 10.5, Immature Gran % (Auto) 0.200, Neut % (Auto) 71.9 H, Lymph % (Auto) 20.4, [place] % (Auto) 6.8, Eos % (Auto) 0.2, Baso % (Auto) 0.5, Absolute Neuts (auto) 6.3, Absolute Lymphs (auto) 1.77, Nucleated RBC % 0, Syphilis Total Ab Nonreactive, Blood Type O POSITIVE, Antibody Screen NEGATIVE 03/08/25 05:15: WBC 8.4, RBC 3.19 L, Hgb 10.4 L, Hct 29.9 L, MCV 93.7, MCH 32.6 H, MCHC 34.8, RDW Std Deviation 42.0, RDW Coeff of Manoj 12.2, Plt Count 214, MPV 9.5 ROS Constitutional Constitutional: Denies chills, fatigue, fever(s), poor appetite or weakness Eyes Eyes: Denies blurry vision, change in vision, seeing flashes or spots in vision ENT HEENT: Denies dizziness, headache(s), loss taste/smell or sore throat Cardiovascular Cardiovascular: Denies chest pain, dizziness, dyspnea, irregular heart rhythm, palpitations or rapid heart rate Respiratory/Chest Respiratory/Chest: Denies chest tightness, cough, dyspnea or breast pain Gastrointestinal Gastrointestinal: Denies abdominal pain, constipation or vomiting Genitourinary Genitourinary: Denies dysuria or flank pain Musculoskeletal Musculoskeletal: Denies difficulty walking, joint pain, limited range of motion or numbness Neurologic Neurologic: Denies abnormal movements, abnormal speech, dizziness, numbness, seizure-like activity or syncope Psychiatric Psychiatric: Denies anxiety, behavioral changes, change in appetite, confusion, depression or suicidal thoughts Physical Exam Const alert, oriented x3 and no apparent distress General Appearance: cooperative and comfortable Resp normal respiratory effort Cardio regular rate GI normal to inspection, nondistended, normoactive bowel sounds GI Narrative: uterus is firm below umbilicus Palpation: soft Back/Spine no CVA tenderness and thoraco-lumbar ROM normal Extremity normal to inspection, no clubbing, cyanosis or edema, no calf tenderness and no pedal edema Psych mental status grossly normal, thought process normal, cooperative, affect normal, speech normal, activity/motor behavior normal, denies homicidal ideation and denies suicidal ideation Assessment & Plan (1) Status post section: COMMENT: BryceV on 03/07/25 Laureano (2) Oligohydramnios: COMMENT: plan for delivery today- 39 weeks 4 days (3) IUGR (intrauterine growth restriction): COMMENT: resolved, but [facility] wants to continue monthly growth scans (4) History of prior with IUGR : COMMENT: plan 36 week growth US (5) Low lying placenta, antepartum: COMMENT: Next to os. Pelvic rest. Rpt US 28 wk-12/16: (6) Nausea and vomiting during : COMMENT: no meds, stable. (7) Supervision of high-risk : QUALIFIERS: Trimester: second trimester Qualified Code(s): O09.92 - Supervision of high risk , unspecified, second trimester COMMENT: PRR, , CHAD 03/10/25, girl, laureano PC: Ellie, : Will (8) : QUALIFIERS: Weeks of gestation: 39 weeks Qualified Code(s): Z 3A.39 - 39 weeks gestation of COMMENT: GBS neg, nl anatomy with consitent CHAD, NIPT low risk, carrier testing done with prior preg, undecided with genetic (9) H/O section: COMMENT: plan TOLAC, RLTCS scheduled for 41 wk (10) Mild pre-eclampsia, : COMMENT: start asa 81mg between 12-16 weeks next (11) Depression: QUALIFIERS: Depression Type: unspecified Qualified Code(s): F32.A - Depression, unspecified COMMENT: change prozac to zoloft and worse sx. New Rx citalopram- improved. stable PLAN: Plan s/p LTCS PPD # 1 1. routine post care 2. breast feeding- support given 3. rh positive 4. rubella immune 5. patient is unsure if ready for dc to home today. will check in with her later today.
[2025-03-08] MEDS: Citalopram 10 MG Tablet 30 MG PO (11:05)
[2025-03-08] MEDS: Famotidine 20 MG Tablet PO ×2 (11:06→23:09)
[2025-03-08] MEDS: Senna/Docusate Sodium 1 Tablet PO (11:06)
[2025-03-08] MEDS: Ferrous Sulfate 325 MG Tablet PO (12:16)
[2025-03-08] MEDS: Ibuprofen 600 MG Tablet PO ×2 (17:17→23:09)
[2025-03-09] MEDS: Acetaminophen 500 MG Tablet 1000 MG PO ×2 (02:45→07:55)
[2025-03-09 02:46] VITALS: BP 111/69; PULSE 63; RESP 14; TEMP 36.8
[2025-03-09] MEDS: Ibuprofen 600 MG Tablet PO ×2 (04:43→10:22)
--- NOTE | 2025-03-09 08:23 | PCM.DC.SUM ---
Providers Date of Admission: 03/07/25 Primary Care Physician: GEN Frost Reason For Visit: REPEAT C SECTION Diagnosis Discharge Diagnosis (1) Status post section: Status: Acute Code(s): Z98.891 - History of uterine scar from previous surgery (2) Oligohydramnios: Status: Acute Code(s): O41.00X0 - Oligohydramnios, unspecified trimester, not applicable or unspecified (3) IUGR (intrauterine growth restriction): Status: Acute (4) History of prior with IUGR : Status: Acute Code(s): Z87.59 - Personal history of other complications of , childbirth and the puerperium (5) Low lying placenta, antepartum: Status: Acute Code(s): O44.40 - Low lying placenta NOS or without hemorrhage, unspecified trimester (6) Nausea and vomiting during : Status: Acute Code(s): O21.9 - Vomiting of , unspecified (7) Supervision of high-risk : Status: Acute Code(s): O09.90 - Supervision of high risk , unspecified, unspecified trimester Qualifiers: Trimester: second trimester Qualified Code(s): O09.92 - Supervision of high risk , unspecified, second trimester (8) : Status: Acute Code(s): Z34.90 - Encounter for supervision of normal , unspecified, unspecified trimester Qualifiers: Weeks of gestation: 39 weeks Qualified Code(s): Z3A.39 - 39 weeks gestation of (9) H/O section: Status: Acute Code(s): Z98.891 - History of uterine scar from previous surgery (10) Mild pre-eclampsia, : Status: Acute Code(s): O14.05 - Mild to moderate pre-eclampsia, complicating the puerperium (11) Depression: Status: Acute Code(s): F32.A - Depression, unspecified Qualifiers: Depression Type: unspecified Qualified Code(s): F32.A - Depression, unspecified Plan s/p LTCS PPD # 1 1. routine post care 2. breast feeding- support given 3. rh positive 4. rubella immune 5. patient is unsure if ready for dc to home today. will check in with her later today. Medications at Discharge Home Medications PNV [id number] 180 mcg-om3 35 mg-dha 25 mg-epa 5 mg-fish oil chew tablet 1 tab PO DAILY preganancy 11/21/22 ferrous sulfate 325 mg (65 mg iron) tablet (Feosol) 325 mg PO QDAY anemia 10/08/24 citalopram 20 mg tablet (Celexa) 30 mg (1.5 x 20 mg) PO QDAY anxiety 90 days #135 tabs 02/07/25 famotidine 20 mg tablet 20 mg PO BID heartburn 90 days #180 TABLETS 02/07/25 ibuprofen 800 mg tablet 800 mg PO Q8H PRN pain #30 tabs 03/07/25 oxycodone-acetaminophen 5 mg-325 mg tablet (Percocet) 1 tab PO Q4H PRN pain 7 days #20 tabs 03/07/25 Hospital Course Operations section Summary of Care Provided Minutes Spent on Discharge: 30 Hospital Course: The patient was admitted for a repeat section on 03/07/25. There were no complications. On day #1 she was tolerating pain well and ambulating, on day #2 she was ready for discharge. Physical Exam HEENT normocephalic Resp normal respiratory effort and normal air movement GI soft to palpation, non-tender and non-distended Rectal Exam: other Other Details: Incision is clean, dry, and intact no CVA tenderness Extremity normal to inspection General Extremity: edema bilateral (trace ) Weight / BMI Weight Weight: 136 lb 9.6 oz Body Mass Index (BMI) 23.4 ABG / Lab / Microbiology Data 03/08/25 05:15 D/C Instructions Discharge Diet: No restrictions May resume sexual activity in: 4-6 weeks Weight Bearing Status: Full weight bearing Call your doctor if your incision/area has: Continuous Slow Oozing, Sudden Increased Bleeding, Increased Pain/ Swelling, Increased Redness and Foul Smelling Discharge Call your doctor if you observe: Fever of 101 or Higher and Using more than 1 pad per hour Suture Line Care: Avoid Pulling/Pushing and Avoid Pinching/Bending Cleanse incision/area with: Soap & Water and Keep Dressing Clean & Dry DC O2, CPAP, BIPAP Needs Home O2 Discharge instructions: No Please Follow Up With: Estelle Nelson DO When: Call [phone] to make an appointment for an incision check in 1-2 weeks. Meaningful Use Info Meaningful Use Meaningful Use Diagnoses (Choose all that apply): None applicable Ischemic Stroke Statin Dosing Therapy Reference: STATIN DOSE THERAPY REFERENCE: * Patients > 75 years receive moderate or high dose statin therapy. * Patients 75 years or YOUNGER should receive HIGH intensity statin dose unless contraindicated. You will be required to document reason for non-treatment if statin daily dose does not meet guidelines. HIGH DOSE STATIN THERAPY DAILY Atorvastatin > than or = to 40 mg Rosuvastatin > than or = to 20 mg Amlodipine + Atorvastatin > than or = to 2.5/40 mg Ezetimibe + Simvastatin 10/80 mg Simvastatin 80mg Discharge Plan Admission Admit Date/Time: 03/07/25 12:36 Primary Reason for Your Visit: section Attending Provider: Estelle Nelson Primary Care Provider: Elizabeth Bhandari NP Discharge Orders/Prescriptions Prescriptions: New ibuprofen 800 mg tablet 800 mg PO Q8H PRN (Reason: pain) Qty: 30 0RF oxycodone-acetaminophen [Percocet] 5-325 mg tablet 1 tab PO Q4H PRN (Reason: pain) 7 Days Qty: 20 0RF Continued PNV [id number] 180 mcg-35 mg- 25 mg-5 mg tablet,chewable 1 tab PO DAILY ferrous sulfate [Feosol] 325 mg (65 mg iron) tablet 325 mg PO QDAY citalopram [Celexa] 20 mg tablet 30 mg PO QDAY 90 Days Qty: 135 3RF famotidine 20 mg tablet 20 mg PO BID 90 Days Qty: 180 4RF Discontinued 81mg diphenhydramine HCl [Allergy Relief(diphenhydramin)] 25 mg tablet 25 mg PO QHS Referrals / Follow Up: Elizabeth Bhandari NP, [facility] [Primary Care Provider] - Disposition Disposition (needs filled in before D/C Order can be placed): Home, Self Care
--- NOTE | 2025-03-09 08:38 | NURSING ---
Patient declines social service consult.
[2025-03-09] MEDS: Senna/Docusate Sodium 1 Tablet PO (10:22)
[2025-03-09] MEDS: Citalopram 10 MG Tablet 30 MG PO (10:22)
== END 2025-03-09 10:35 | disposition home or self-care (01) | DRG 787 ==
PROVIDERS: Obstetrics & Gynecology; Admitting Provider Obstetrics & Gynecology; PCP Nurse Practitioner Family; Referring Provider Obstetrics & Gynecology; Visit Provider Obstetrics & Gynecology
DX: O41.03X0 Oligohydramnios, third trimester, not applicable or unspecified (principal); O44.43 Low lying placenta NOS or without hemorrhage, third trimester; F32.A Depression, unspecified; Z37.0 Single live birth; Z3A.39 39 weeks gestation of pregnancy; O99.344 Other mental disorders complicating childbirth; O69.81X0 Labor and delivery complicated by cord around neck, without compression, not applicable or unspecified; O34.211 Maternal care for low transverse scar from previous cesarean delivery; Z79.899 Other long term (current) drug therapy
CPT/HCPCS: 59025; 85025; 85027; 86780; 86850; 86900; 86901; 99221; A4216; G0378; J2405

== ENCOUNTER → 2025-04-12 | Outpatient (CLI) | payer OTHER, SELFPAY ==
[2025-04-15 15:01] LABS: HPV Reflexed? NOT INDICATED
== END | disposition home or self-care (01) ==
LOC: LABSPEC 16:20
PROVIDERS: PCP Nurse Practitioner Family; Referring Provider Obstetrics & Gynecology; Visit Provider Obstetrics & Gynecology
DX: Z12.4 Encounter for screening for malignant neoplasm of cervix (principal)
CPT/HCPCS: 88175; G0145